=== PATIENT | male | born 1995 | race African-American/Black ===

== ENCOUNTER 2020-01-07 04:10 | Inpatient (IN) | payer MEDICAID, SELFPAY ==
[2020-01-07 04:20] VITALS: BP 108/83; PULSE 85; RESP 16; TEMP 36.6; O2SAT 94; BMI 28.8
--- NOTE | 2020-01-07 05:04 | PC.NURSE ---
Skin assessment revealed no wounds or injuries.
[2020-01-07 05:31] VITALS: BP 108/83; PULSE 84; RESP 16; TEMP 36.6; O2SAT 95
[2020-01-07] MEDS: hyDROXYzine 25 mg Capsule 50 MG PO (08:08)
[2020-01-07] MEDS: haloperidol 5 mg Tablet PO (08:08)
[2020-01-07] MEDS: nicotine 21 mg Patch 1 PATCH TRANSDERMA (08:09)
--- NOTE | 2020-01-07 08:12 | PC.NURSE ---
PRN HALDOL & VISTARIL HALDOL 5 MG GIVEN PO PER PT C/O HALLUCINATIONS. VISTARIL 50 MG GIVEN PO PER PT C/O ANXIETY. PT PACING IN ROOM, APPEARS EXTREMELY ANXIOUS. HOLDING HIS HEAD AND CRYING AT TIMES. TOOK MEDS WILLINGLY. WILL CONT TO MONITOR FOR DESIRED MED EFFECTIVENESS.
[2020-01-07] MEDS: OLANZapine 5 mg ODT PO (09:33)
--- NOTE | 2020-01-07 09:33 | PC.NURSE ---
PRN ZYPREXA ZYDIS 5 MG GIVEN PO PER PT C/O AGITATION & PSYCHOSIS PT PACING IN ROOM, YELLING OUT AT TIMES, CURSING, TALKING TO HIMSELF . TOOK MED WILLINGLY. WILL CONT TO MONITOR
[2020-01-07] MEDS: acetaminophen 325 mg Tablet 650 MG PO (11:11)
[2020-01-07] MEDS: LORazepam 2 mg Tablet PO (11:28)
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
[2020-01-07 20:04] VITALS: BP 103/67; PULSE 69; RESP 16; TEMP 36.8; O2SAT 94
[2020-01-08 06:00] VITALS: BP 112/65; PULSE 78; RESP 16; TEMP 36.6; O2SAT 99
[2020-01-08] MEDS: ondansetron 4 MG Tablet PO (09:19)
--- NOTE | 2020-01-08 09:20 | PC.NURSE ---
PRN ZOFRAN 4 MG GIVEN PO PER PT C/O STATED NAUSEA/UPSET STOMACH
[2020-01-08] MEDS: OLANZapine 5 mg ODT PO (09:53)
--- NOTE | 2020-01-08 09:54 | PC.NURSE ---
PRN ZYPREXA ZYDIS 5 MG GIVEN PO PER PT C/O AGITATION/PSYCHOSIS. PT IN ROOM YELLING OUT, COVERING HIMSELF WITH A SHEET. STAFF WENT TO CHECK ON PT AND PT REMOVED SHEET BUT HELD HIS HANDS TO THE SIDE OF HIS HEAD AND YELLING OUT GET OUT OF MY HEAD! PT OFFERED PRN MED & PT TOOK WILLINGLY. WILL CONT TO MONITOR
[2020-01-08] MEDS: LORazepam 2 mg Tablet PO (10:28)
--- NOTE | 2020-01-08 13:21 | NPU.GN ---
Viraj was not present at Group this afternoon.
--- NOTE | 2020-01-08 13:44 | P.PN_ITS ---
Subjective NPU Subjective: Interval history: Lukasz presents today continuing to really struggle with impulse control. However after getting medication today he was able to have a somewhat logical and productive conversation with basic given take format. He reports that he is on Invega but he does not recall when he last got the shot. Continue to be a limited use understanding of his challenges are. However conversation with his mother suggest that he really has been struggling recently and in fact she has applied for guardianship and some paperwork arrived today and it is possibly his acknowledgment of a court date. We will follow this information and identify when he last had his medication. Mental Status Exam MSE Comments: This is a well-nourished well-developed white male with hospital scrubs on with limited grooming and eye contact. No abnormal movements except for psychomotor agitation. More cooperative with examination in mild to moderate distress. Speech was increased rate and volume, but better after medication. Mood not described, affect was animated and irritable. Thought process linear. Thought content: Patient did not respond to questions about lethality but did not demonstrate agitation towards himself or others, there were no delusions reported and no specific delusions noted, he did not respond to questions about auditory hallucinations but was clearly attending to internal stimuli and having full-blown conversations with himself. Attention and concentration were limited, but improving and memory was unreliable, but improving but none were formally tested. He is alert and oriented times person and place. Insight and judgment are impaired but improving, impulse control is impaired. Vitals/I&O/Wt Last Vital Signs Temp 97.9 F 01/08/20 06:00 Pulse 78 01/08/20 06:00 Resp 16 01/08/20 06:00 BP 112/65 01/08/20 06:00 Pulse Ox 99 01/08/20 06:00 Weight last 48 hrs Weight 41.277 kg Weight 91 kg A&P Additional A&P Information (1) Psychosis: (2) Substance abuse: (3) Anxiety: This is a 25-year-old white male with reported active addiction who is healthy presents as a very poor historian with limited input to our understanding of his presentation who presents resistant to medication trial. 1. Continue current medication. Will explore and offer medications to assist in the resolution of his symptoms. Will identify when his last injection was and whether he would benefit from augmentation with Invega. 2. Continue every 15 minute checks for safety. 3. Encourage individual, group and milieu therapy. 4. Recommend sober living treatment at the highest level care to which he is willing to commit upon discharge. 5. We will attempt to get collateral information to assist in his care. Involuntary Hold Information 96 Hour Hold: 96 Hour Involuntary Admission: No Attestations NPU Medical Necessity Statement*: Inpatient hospitalization is medically necessary and the clinically appropriate intervention at this time. We will initiate/monitor medications and make changes as indicated. Likely length of stay 3-5 days. Coding Level of Care Code Acute Cooler Service Supervisor for Sanjana Saucedo
[2020-01-08 14:00] VITALS: BP 105/69; PULSE 105; RESP 18; TEMP 36.7; O2SAT 98
[2020-01-08] MEDS: hyDROXYzine 25 mg Capsule 50 MG PO (21:36)
[2020-01-08] MEDS: trazodone 50 mg Tablet PO (21:37)
[2020-01-08 22:00] VITALS: BP 106/66; PULSE 82; RESP 17; TEMP 36.4; O2SAT 100
[2020-01-09 05:58] VITALS: BP 113/79; PULSE 85; RESP 15; TEMP 36.6; O2SAT 98
[2020-01-09] MEDS: hyDROXYzine 25 mg Capsule 50 MG PO ×2 (10:11→22:45)
[2020-01-09] MEDS: haloperidol 5 mg Tablet PO ×2 (10:11→15:26)
--- NOTE | 2020-01-09 11:48 | PC.NURSE ---
med clarification This nurse called [facility] in [place], [place]. Contact info for Dr. Guerrier office that he follows outpatient and last invega injection was given on 12/06/19.
[2020-01-09] MEDS: ziprasidone 20 mg/mL SDV (12:15)
[2020-01-09] MEDS: LORazepam 2 mg/mL INJ 1 mL IM (12:16)
--- NOTE | 2020-01-09 12:21 | PM.NPN ---
Subjective NPU Subjective: Interval history: Lukasz presents today continuing to struggle with anxiety and psychosis. He continues to get as needed medications, but we are able to determine that he received his last Invega injection slightly over a month ago and so we discussed giving him his injection now and he understood and agreed to proceed as is documented in this note. Mental Status Exam MSE Comments: This is a well-nourished well-developed white male with hospital scrubs on with limited grooming and eye contact. No abnormal movements except for psychomotor agitation. More cooperative with examination in mild to moderate distress. Speech was increased rate and volume, but better after medication. Mood not described, affect was animated and irritable. Thought process linear. Thought content: Patient did not respond to questions about lethality but did not demonstrate agitation towards himself or others, there were no delusions reported and no specific delusions noted, he did not respond to questions about auditory hallucinations but was clearly attending to internal stimuli and having full-blown conversations with himself. Attention and concentration were limited, but improving and memory was unreliable, but improving but none were formally tested. He is alert and oriented times person and place. Insight and judgment are impaired but improving, impulse control is impaired. Vitals/I&O/Wt Last Vital Signs Temp 98.9 F 01/09/20 22:00 Pulse 86 01/09/20 22:00 Resp 15 01/09/20 22:00 BP 109/70 01/09/20 22:00 Pulse Ox 96 01/09/20 22:00 A&P Additional A&P Information (1) Psychosis: (2) Substance abuse: (3) Anxiety: This is a 25-year-old white male with reported active addiction who is healthy presents as a very poor historian with limited input to our understanding of his presentation who presents resistant to medication trial. 1. Continue current medication. Administer his Invega injection 234 mg IM every 30 days. 2. Continue every 15 minute checks for safety. 3. Encourage individual, group and milieu therapy. 4. Recommend sober living treatment at the highest level care to which he is willing to commit upon discharge. 5. We will attempt to get collateral information to assist in his care. Involuntary Hold Information 96 Hour Hold: 96 Hour Involuntary Admission: No Attestations NPU Medical Necessity Statement*: Inpatient hospitalization is medically necessary and the clinically appropriate intervention at this time. We will initiate/monitor medications and make changes as indicated. Likely length of stay 3-5 days. Coding Level of Care Code Acute Superintendent Construction for Sanjana Saucedo
--- NOTE | 2020-01-09 12:30 | PC.NURSE ---
Geodon and Ativan Patient continues to yell at no one, pace back and forth in his room, rambling and talking to voices. Patient jumping off and on his bed, messing with curtains. Patient then kicked his heel into the wall, leaving a hole in the wall. Patient punching windows. Patient said get me out of here . Security called. Unable to redirect patient. 20mg Geodon and 2mg Ativan given IM per physician order.
[2020-01-09 13:59] VITALS: BP 116/83; PULSE 104; RESP 18; TEMP 37.1; O2SAT 99
[2020-01-09] MEDS: paliperidone palmitate 234 mg Syringe IM (14:27)
--- NOTE | 2020-01-09 14:30 | PC.NURSE ---
INVEGA SUSTENNA 234 MG GIVEN IM PER PHYSICIAN ORDER. IM INJECTION GIVEN IN RIGHT BUTTOCK. PT TOLERATED INJECTION WELL LOT KDBOEOO EXP 05/2021
[2020-01-09 22:00] VITALS: BP 109/70; PULSE 86; RESP 15; TEMP 37.2; O2SAT 96
[2020-01-09] MEDS: OLANZapine 5 mg ODT PO (22:46)
[2020-01-09] MEDS: trazodone 50 mg Tablet PO (22:46)
[2020-01-09] MEDS: ondansetron 4 MG Tablet PO (22:46)
--- NOTE | 2020-01-09 23:52 | PC.NURSE ---
PATIENT IS BECOMING MORE AGITATED AND YELLING. HE SEEMS TO BE PHYSICALLY FIGHTING WITH SOMETHING UNSEEN. HE KEEPS SCREAMING OH MY GOD, LEAVE ME ALONE, SHUT UP. HE SWATS AT THE AIR AND IS HIDING UNDER HIS BLANKETS. HE IS ROCKING, FEET FLAILING, AND KICKING AT WHATEVER HE IS SEEING. WHEN ASKED IF HE IS HEARING VOICES.. HE RESPONDED YES, THEY WONT SHUT UP. CONSULTED MED NURSE TIERRA. PATIENT IS REQUESTING MEDICATION IN THE FORM OF A SHOT TO MAKE THE VOICES AND HALLUCINATIONS STOP.
[2020-01-10] MEDS: diphenhydrAMINE 50 mg/mL SDV 1mL IM (00:08)
[2020-01-10] MEDS: LORazepam 2 mg/mL INJ 1 mL IM (00:09)
[2020-01-10] MEDS: haloperidol inj 5 mg/mL INJ 1 mL IM (00:10)
--- NOTE | 2020-01-10 00:11 | PC.NURSE ---
Patient is having severe AH and VH. Fighting demons and yelling , punching at the air, pounding his bed. B-52 given.
--- NOTE | 2020-01-10 03:16 | PC.NURSE ---
Pt was seeing demons and hearing voices screaming. Became frightened and hid under covers. He kept screaming at the things he was seeing. Rob gave patient Benedryl 50mg IM, Ativan 2mg Im, Haldol 5mg IM. Patient has slept since he received these injections. He has been very delusional this evening
[2020-01-10 06:00] VITALS: BP 107/55; PULSE 90; RESP 17; TEMP 36.7; O2SAT 100
--- NOTE | 2020-01-10 10:05 | P.PN_ITS ---
Subjective NPU Subjective: Interval history: Viraj presented today in much the same pattern that he had been in with moments of clarity followed by periods of agitation. Once again he required as needed medication to help manage his impulses. We discussed the risk benefits and alternatives of intended Geodon and he appeared to understand and agree proceed as is documented in this note. Mental Status Exam MSE Comments: This is a well-nourished well-developed white male with hospital scrubs on with limited grooming and eye contact. No abnormal movements except for psychomotor agitation. More cooperative with examination in mild to moderate distress. Speech was increased rate and volume, but better after medication. Mood described as okay, affect was irritable. Thought process linear. Thought content: Patient not suicidal or homicidal ideation but continued to have self injurious aggression, there were no delusions reported and no specific delusions noted, he did not respond to questions about auditory hallucinations but was clearly attending to internal stimuli and having full- blown conversations with himself. Attention and concentration were limited, but improving and memory was unreliable, but improving but none were formally tested. He is alert and oriented times person and place. Insight and judgment are impaired but improving, impulse control is impaired. Vitals/I&O/Wt Last Vital Signs Temp 97.3 F L 01/10/20 14:00 Pulse 85 01/10/20 14:00 Resp 17 01/10/20 21:21 BP 110/75 01/10/20 14:00 Pulse Ox 99 01/10/20 14:00 A&P Additional A&P Information (1) Psychosis: (2) Substance abuse: (3) Anxiety: This is a 25-year-old white male with reported active addiction who is healthy presents as a very poor historian with limited input to our understanding of his presentation who presents resistant to medication trial. 1. Continue current medication. Except: Initiate Geodon 20 mg p.o. twice daily with meals 2. Continue every 15 minute checks for safety. 3. Encourage individual, group and milieu therapy. 4. Recommend sober living treatment at the highest level care to which he is willing to commit upon discharge. 5. We will attempt to get collateral information to assist in his care. Involuntary Hold Information 96 Hour Hold: 96 Hour Involuntary Admission: No Attestations NPU Medical Necessity Statement*: Inpatient hospitalization is medically necessary and the clinically appropriate intervention at this time. We will initiate/monitor medications and make changes as indicated. Likely length of stay 3-5 days. Coding Level of Care Code Acute Pathology Assistant for Sanjana Saucedo
[2020-01-10] MEDS: OLANZapine 5 mg ODT PO (13:10)
--- NOTE | 2020-01-10 13:10 | PC.NURSE ---
PRN Zyprexa Zydis Patient at nurses station pacing between room and desk, increased anxiety noted and and patient verbalized increased anxiety. Zyprexa Zydis 5mg PO given at this time. Will monitor effectiveness of this medication.
[2020-01-10 14:00] VITALS: BP 110/75; PULSE 85; RESP 20; TEMP 36.3; O2SAT 99
[2020-01-10] MEDS: haloperidol 5 mg Tablet PO (14:15)
--- NOTE | 2020-01-10 14:15 | PC.NURSE ---
Zyprexa Follow up/Haldol PRN Patient continues to pace between room and nurses station. Occasional yelling at no one directly. Haldol 5mg PO given at this time. Will monitor effectiveness of this medication.
[2020-01-10] MEDS: ziprasidone 20 mg/mL SDV IM (15:15)
--- NOTE | 2020-01-10 15:15 | PC.NURSE ---
Geodon 20mg IM/Agitation Patient at phone talking to mother, has increased agitation and yelling, threw phone to the ground, and went into room and pushed bed away from wall. This nurse called security and asked them to come down to NPU. Patient went back towards nurses station and attempted another phone call, he then started slamming against the door. Code 10 was then called, patient was agreeable to receiving an injection to help with agitation and anxiety. Geodon 20mg IM given at this time. Will monitor effectiveness of this medication.
--- NOTE | 2020-01-10 15:47 | PC.NURSE ---
CODE 10 Patient Behavior Just before 1510 patient was verbally aggressive with his mother on the phone. He slammed the phone down and stated he was leaving. He began ramming into the locked door. Security was present and tried to verbally de-escalated the patient. A code 10 was called as he continued to be agitated stating his mom was going to lock him up forever. We followed him into his room and he began punching the window. Several staff, security and editor house organ present. Patient began to calm and agreed to an IM injection for agitation.
--- NOTE | 2020-01-10 15:49 | PC.NURSE ---
Randell PRN Follow up Patient is resting in bed with eyes closed. Respirations even and non labored.
[2020-01-10 21:21] VITALS: RESP 17
[2020-01-11 06:00] VITALS: BP 99/64; PULSE 71; RESP 14; TEMP 37.1; O2SAT 98
[2020-01-11] MEDS: ziprasidone hcl 20 mg Capsule PO (06:38)
[2020-01-11] MEDS: ziprasidone 20 mg/mL SDV IM (09:07)
--- NOTE | 2020-01-11 09:11 | PC.NURSE ---
Patient behavior Patient was yelling out that he wanted the demons in his head to go away. He requested medication for the hallucinations that were making him agitated. Given 20 mg Geodon IM.
[2020-01-11] MEDS: haloperidol inj 5 mg/mL INJ 1 mL IM (11:09)
[2020-01-11] MEDS: LORazepam 2 mg/mL INJ 1 mL IM (11:10)
[2020-01-11] MEDS: diphenhydrAMINE 50 mg/mL SDV 1mL IM (11:10)
--- NOTE | 2020-01-11 11:10 | PC.NURSE ---
Patient behavior Patient was on ph9one with his mom and started yelling. He slammed the phone down and went to his room. Staff, warehouse pricing and inventory clerk and security present and attempted to verbally de escalate. Sheet was removed from his hands. Patient agreed to medication for his aggression. Given 50 benadryl IM, 2 ativan IM, 5 haldol IM.
--- NOTE | 2020-01-11 11:42 | P.PN_ITS ---
Subjective NPU Subjective: Interval history: Viraj continues to persist and able to communicate but continues to have moments of significant psychomotor dysregulation. He is taking his medication and endorsing improvement but he still has those moments. We discussed the risks, benefits and alternatives of increasing the Geodon and he understood and agreed to proceed as is documented in this note. Mental Status Exam MSE Comments: This is a well-nourished well-developed white male with hospital scrubs on with limited grooming and eye contact. No abnormal movements except for psychomotor agitation. More cooperative with examination in mild distress. Speech was more normal rate and volume, but better after medication. Mood described as okay, affect was less irritable. Thought process linear. Thought content: Patient not suicidal or homicidal ideation but continued to have self injurious aggression, there were no delusions reported and no specific delusions noted, he did not respond to questions about auditory hallucinations but was clearly attending to internal stimuli and having full-blown conversations with himself, but less often. Attention and concentration were limited, but improving and memory was unreliable, but improving but none were formally tested. He is alert and oriented times person and place. Insight and judgment are impaired but improving, impulse control is impaired. Vitals/I&O/Wt Last Vital Signs Temp 98.7 F 01/11/20 14:00 Pulse 112 H 01/11/20 14:00 Resp 14 01/11/20 21:43 BP 124/84 01/11/20 14:00 Pulse Ox 98 01/11/20 14:00 A&P Additional A&P Information (1) Psychosis: (2) Substance abuse: (3) Anxiety: This is a 25-year-old white male with reported active addiction who is healthy presents as a very poor historian with limited input to our understanding of his presentation who presents resistant to medication trial. 1. Continue current medication. Except: Increase Geodon to 40 mg p.o. twice daily with meals 2. Continue every 15 minute checks for safety. 3. Encourage individual, group and milieu therapy. 4. Recommend sober living treatment at the highest level care to which he is willing to commit upon discharge. 5. We will attempt to get collateral information to assist in his care. Involuntary Hold Information 96 Hour Hold: 96 Hour Involuntary Admission: No Attestations NPU Medical Necessity Statement*: Inpatient hospitalization is medically necessary and the clinically appropriate intervention at this time. We will initiate/monitor medications and make changes as indicated. Likely length of stay 3-5 days. Coding Level of Care Code Acute Conveyor Installer for Sanjana Saucedo
[2020-01-11 14:00] VITALS: BP 124/84; PULSE 112; RESP 20; TEMP 37.1; O2SAT 98
[2020-01-11] MEDS: LORazepam 2 mg Tablet PO (14:48)
--- NOTE | 2020-01-11 14:49 | PC.NURSE ---
PRN ATIVAN Patient stated the demons were back in his head and he was getting anxious. Given 2mg Ativan po.
[2020-01-11] MEDS: ziprasidone hcl 40 mg Capsule PO (17:00)
[2020-01-11] MEDS: trazodone 50 mg Tablet PO (21:27)
[2020-01-11] MEDS: hyDROXYzine 25 mg Capsule 50 MG PO (21:27)
[2020-01-11 21:43] VITALS: RESP 14
[2020-01-12 06:00] VITALS: BP 136/81; PULSE 76; RESP 17; TEMP 36.2; O2SAT 96
[2020-01-12] MEDS: ziprasidone hcl 40 mg Capsule PO ×2 (06:12→17:07)
[2020-01-12] MEDS: LORazepam 2 mg Tablet PO ×2 (09:24→14:49)
--- NOTE | 2020-01-12 09:25 | PC.NURSE ---
[place] ATIVAN Patient stated his demons were back in his head. he had been yelling out for them to go away. Given 2 mg Ativan PO.
[2020-01-12] MEDS: OLANZapine 5 mg ODT PO (13:10)
--- NOTE | 2020-01-12 13:11 | PC.NURSE ---
PRN ZYPREXA ZYDIS Patient stated he is hearing voices and the demons requested medication. Given zyprexa zydis 5 mg po.
[2020-01-12] MEDS: nicotine 21 mg Patch 1 PATCH TRANSDERMA (13:27)
--- NOTE | 2020-01-12 13:45 | PM.NPN ---
Subjective NPU Subjective: Interval history: Viraj presents today reporting a desire to be discharged. He reports that the medication is helpful and he is taking it. We discussed the importance of him having more manageable behavior before discharge. He reports that yesterday he was not angry or planning to do anything bad when he had issue with a blanket. We discussed working with the treatment team tomorrow to get a sense of what his options are to begin looking towards discharge. Mental Status Exam MSE Comments: This is a well-nourished well-developed white male with hospital scrubs on with limited grooming and eye contact. No abnormal movements except for mild psychomotor retardation. More cooperative with examination in no acute distress. Speech was more normal rate and volume. Mood described as I feel better, affect was more calm. Thought process linear. Thought content: Patient did not express suicidal or homicidal ideation, there were no delusions reported and no specific delusions noted, he denied auditory or visual hallucinations. Attention and concentration were improving, and memory was appearing more reliable, but none were formally tested. He is alert and oriented times 3. Insight and judgment are improving, impulse control is impaired, but improving. Vitals/I&O/Wt Last Vital Signs Temp 98.3 F 01/12/20 22:00 Pulse 86 01/12/20 22:00 Resp 15 01/12/20 22:00 BP 106/68 01/12/20 22:00 Pulse Ox 97 01/12/20 22:00 Weight last 48 hrs Weight 72.575 kg A&P Additional A&P Information (1) Psychosis: (2) Substance abuse: (3) Anxiety: This is a 25-year-old white male with reported active addiction who is healthy presents as a very poor historian with limited input to our understanding of his presentation who presents resistant to medication trial. 1. Continue current medication. 2. Continue every 15 minute checks for safety. 3. Encourage individual, group and milieu therapy. 4. Recommend sober living treatment at the highest level care to which he is willing to commit upon discharge. 5. We will attempt to get collateral information to assist in his care. Involuntary Hold Information 96 Hour Hold: 96 Hour Involuntary Admission: No Attestations NPU Medical Necessity Statement*: Inpatient hospitalization is medically necessary and the clinically appropriate intervention at this time. We will initiate/monitor medications and make changes as indicated. Likely length of stay 2-4 days. Coding Level of Care Code Acute Lead Systems Analyst for Sanjana Saucedo
[2020-01-12 14:00] VITALS: BP 134/86; PULSE 108; RESP 16; TEMP 36.8; O2SAT 98
[2020-01-12] MEDS: acetaminophen 325 mg Tablet 650 MG PO (14:45)
[2020-01-12] MEDS: haloperidol 5 mg Tablet PO (14:49)
--- NOTE | 2020-01-12 14:54 | PC.NURSE ---
PRN ATIVAN and HALDOL Patient continues to have hallucinations to the point he is yelling and getting agitated. Given 2 mg Ativan po and 5 mg Haldol po.
[2020-01-12] MEDS: ziprasidone 20 mg/mL SDV IM (15:57)
[2020-01-12] MEDS: hyDROXYzine 25 mg Capsule 50 MG PO (21:20)
[2020-01-12] MEDS: trazodone 50 mg Tablet PO (21:21)
[2020-01-12 22:00] VITALS: BP 106/68; PULSE 86; RESP 15; TEMP 36.8; O2SAT 97
[2020-01-13 06:00] VITALS: BP 100/65; PULSE 91; RESP 16; TEMP 36.6; O2SAT 97
[2020-01-13] MEDS: ziprasidone hcl 40 mg Capsule PO ×2 (06:05→17:22)
[2020-01-13] MEDS: hyDROXYzine 25 mg Capsule 50 MG PO ×2 (12:25→21:28)
[2020-01-13] MEDS: haloperidol 5 mg Tablet PO (12:26)
--- NOTE | 2020-01-13 12:33 | PC.NURSE ---
PRN Vistaril and Haldol Patient states the demons are back in his head and is requesting something for anxiety. Patient is yelling out for them to go away in his room. Tossing and turning in his bed and speaking to people who are not there. 5mg PO Haldal and 50mg PO Vistaril given.
[2020-01-13] MEDS: ziprasidone 20 mg/mL SDV IM (13:07)
[2020-01-13] MEDS: LORazepam 2 mg/mL INJ 1 mL IM (13:33)
--- NOTE | 2020-01-13 13:33 | PC.NURSE ---
PRN ATIVAN AND GEODON PRN 20mg IM Geodon given as patient stated the voices just wouldn't go away. Patient seemed to calm down after, but then patient tried to use phone and started yelling. He slammed the phone down, punched a hole in the wall in the hallway and went to his room. Staff members went to see what was going on and attempted to verbally de escalate. Security called and arrived to patient's room. Patient continuing to yell and hit rojas in his room. Dr. Rae arrived and attempted to de escalate as well. Patient then walked angrily to hallway and verbally aggressive towards staff. Patient agreed to medication for his aggression and anxiety. 2mg IM Ativan given. Patient now in room, sitting on bed. Patient educated that this behavior is inappropriate and harmful. Work order placed for hole in wall.
[2020-01-13 14:18] VITALS: BP 140/92; PULSE 89; RESP 18; TEMP 36.2; O2SAT 96
--- NOTE | 2020-01-13 15:17 | PM.NPN ---
Subjective NPU Subjective: Interval history: Viraj presents today making some strides but being very agitated. At one point he punched a hole in the wall of the wall adjacent to his door just outside of his room. He then requested to leave and clearly has limited insight and decision-making capacity as his arguments for discharge were infantile at best. He is clearly not aware of the proceedings going on and is now starting to report a desire to leave even though he has no place to go and will be fully and capable of functioning independently outside of the hospital. Significant concerns exist for the speed and intensity of his escalation still. Mental Status Exam MSE Comments: This is a well-nourished well-developed white male with hospital scrubs on with limited grooming and eye contact. No abnormal movements except for mild psychomotor retardation with occasional moments of extreme psychomotor agitation. More cooperative with examination in moderate distress. Speech was more normal rate and volume. Mood described as I want to leave, affect was irritable. Thought process linear. Thought content: Patient did not express suicidal or homicidal ideation but displayed outwardly directed aggression, there were no delusions reported and no specific delusions noted, he denied auditory or visual hallucinations. Attention and concentration were improving, and memory was appearing more reliable, but none were formally tested. He is alert and oriented times 3. Insight and judgment are improving, impulse control is impaired, but improving. Vitals/I&O/Wt Last Vital Signs Temp 98.2 F 01/13/20 20:32 Pulse 82 01/13/20 20:32 Resp 16 01/13/20 20:32 BP 119/76 01/13/20 20:32 Pulse Ox 97 01/13/20 20:32 Weight last 48 hrs Weight 72.575 kg A&P Additional A&P Information (1) Psychosis: (2) Substance abuse: (3) Anxiety: This is a 25-year-old white male with reported active addiction who is healthy presents as a very poor historian with limited input to our understanding of his presentation who presents resistant to medication trial. 1. Continue current medication. Except increase Geodon to 60 mg p.o. twice daily with meals. 2. Continue every 15 minute checks for safety. 3. Encourage individual, group and milieu therapy. 4. Recommend sober living treatment at the highest level care to which he is willing to commit upon discharge. 5. We will attempt to get collateral information to assist in his care. Involuntary Hold Information 96 Hour Hold: 96 Hour Involuntary Admission: No Attestations NPU Medical Necessity Statement*: Inpatient hospitalization is medically necessary and the clinically appropriate intervention at this time. We will initiate/monitor medications and make changes as indicated. Likely length of stay 2-4 days. We may need to put him on a 96-hour hold. Coding Level of Care Code Acute Supervisor Ble[employer] for Sanjana Saucedo
[2020-01-13 20:32] VITALS: BP 119/76; PULSE 82; RESP 16; TEMP 36.8; O2SAT 97
[2020-01-13] MEDS: trazodone 50 mg Tablet PO (21:28)
[2020-01-14 06:00] VITALS: BP 110/74; PULSE 78; RESP 15; TEMP 36.4; O2SAT 98
[2020-01-14] MEDS: ziprasidone hcl 40 mg Capsule PO ×2 (06:12→16:51)
[2020-01-14] MEDS: haloperidol 5 mg Tablet PO (08:27)
[2020-01-14] MEDS: LORazepam 2 mg Tablet PO (08:27)
[2020-01-14] MEDS: LORazepam 2 mg/mL INJ 1 mL IM (09:05)
[2020-01-14] MEDS: ziprasidone 20 mg/mL SDV IM (09:05)
--- NOTE | 2020-01-14 09:08 | PC.NURSE ---
PRN MEDICATIONS FOR AGGRESSION AND ANXIETY PRN 20mg IM Geodon and 2mg IM Ativan given at 0905 as patient became aggressive after having conversation on phone with his mother. Patient began yelling at person on phone. Staff attempted to ask patient to calm down, please get off phone. Patient refused. Patient then handed the phone to KRISSY Lemus and told her to tell his mother to fuck off . Patient then yelling and stormed into dayroom. Staff members went to see what was going on and attempted to verbally de escalate. Other patients and PSA asked to leave dayroom and go back to their room for safety. Patient began trying to moss picker chairs and topple them over. Patient stated he was going to throw the chair through the window. Security called and arrived to dayroom. Patient continuing to yell and hit the windows in dayroom. Patient then walked angrily through hallway. Patient then went to his room. Patient agreed to medication for his aggression and anxiety. Patient now in room, sitting on bed. Medication given. Patient educated that this behavior is inappropriate and harmful and could be harmful to other patients as well. Physician notified.
--- NOTE | 2020-01-14 11:34 | PM.NPN ---
Subjective NPU Subjective: Interval history: Viraj continues to struggle with his self-control. Continues to focus on being discharged. Today received the paperwork that a temporary guardian has been assigned and so his requests for discharge have gotten complicated. We alluded to the fact that we got some paperwork that we were unclear about verify what needed to be done. He called his mother but it is unclear whether she actually told him that she had gained the injunction but she was somewhat frustrated because she was made the guardian and she had hoped that have been a public branch office administrator. We were able to explain to him however we were looking for an appropriate placement. He once again required as needed medication. Mental Status Exam MSE Comments: This is a well-nourished well-developed white male with hospital scrubs on with limited grooming and eye contact. No abnormal movements except for mild psychomotor retardation with occasional moments of extreme psychomotor agitation. More cooperative with examination in moderate distress. Speech was more spontaneous and more normal rate and volume. Mood described as I want to leave, affect was irritable. Thought process linear. Thought content: Patient did not express suicidal or homicidal ideation but displayed outwardly directed aggression, there were no delusions reported and no specific delusions noted, he denied auditory or visual hallucinations. Attention and concentration were improving, and memory was appearing more reliable, but none were formally tested. He is alert and oriented times 3. Insight and judgment are improving, impulse control is impaired, but improving. Vitals/I&O/Wt Last Vital Signs Temp 97.6 F 01/14/20 14:00 Pulse 101 H 01/14/20 14:00 Resp 16 01/14/20 20:13 BP 115/79 01/14/20 14:00 Pulse Ox 98 01/14/20 14:00 A&P Additional A&P Information (1) Psychosis: (2) Substance abuse: (3) Anxiety: This is a 25-year-old white male with reported active addiction who is healthy presents as a very poor historian with limited input to our understanding of his presentation who presents resistant to medication trial. 1. Continue current medication. 2. Continue every 15 minute checks for safety. 3. Encourage individual, group and milieu therapy. 4. Recommend sober living treatment at the highest level care to which he is willing to commit upon discharge. 5. Patient now has a guardian. Which is his mother. Involuntary Hold Information 96 Hour Hold: 96 Hour Involuntary Admission: No Attestations NPU Medical Necessity Statement*: Inpatient hospitalization is medically necessary and the clinically appropriate intervention at this time. We will initiate/monitor medications and make changes as indicated. Coding Level of Care Code Acute Ice Cream Machine Operator for Sanjana Saucedo
[2020-01-14] MEDS: OLANZapine 5 mg ODT PO (12:37)
[2020-01-14] MEDS: hyDROXYzine 25 mg Capsule 50 MG PO (12:37)
[2020-01-14 14:00] VITALS: BP 115/79; PULSE 101; RESP 18; TEMP 36.4; O2SAT 98
[2020-01-14] MEDS: nicotine 21 mg Patch 1 PATCH TRANSDERMA (15:05)
[2020-01-14 20:13] VITALS: RESP 16
--- NOTE | 2020-01-14 22:41 | NUR.SHIFT ---
Pt's vitals are stable, resting in his room.
[2020-01-15] MEDS: trazodone 50 mg Tablet PO ×2 (00:32→21:52)
[2020-01-15] MEDS: hyDROXYzine 25 mg Capsule 50 MG PO ×4 (00:32→21:52)
--- NOTE | 2020-01-15 02:53 | PC.NURSE ---
No Incident-pt has slept well, no outbursts, no nightmares, and reports a decrease in VH/AH. Asked for a snack at the nurses desk and returned to bed.
[2020-01-15] MEDS: ziprasidone hcl 40 mg Capsule PO ×2 (05:55→16:13)
[2020-01-15 06:00] VITALS: BP 114/73; PULSE 105; RESP 17; TEMP 36.3; O2SAT 100
--- NOTE | 2020-01-15 06:09 | PC.SOCIAL ---
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 He was clear enough to ask this morning. Hope this information helps.
[2020-01-15] MEDS: OLANZapine 5 mg ODT PO (09:40)
[2020-01-15] MEDS: LORazepam 2 mg Tablet PO (12:27)
--- NOTE | 2020-01-15 12:28 | PC.NURSE ---
PRN ATIVAN Patient came to nurse's station requesting something for anxiety, states he feels more anxious and it will only get worse. Ativan 2mg PO given.
[2020-01-15] MEDS: ondansetron 4 MG Tablet PO (12:49)
[2020-01-15 13:44] VITALS: BP 108/70; PULSE 96; RESP 19; TEMP 36.3
--- NOTE | 2020-01-15 14:21 | P.PN_ITS ---
Subjective NPU Subjective: Interval history: Viraj presents reporting that he is trying to figure out what he has to do to be discharged. He had an episode again this morning where he was frustrated and needed when necessary medication to calm down. But he understands the treatment team is working for placement options both level II and otherwise and at least at this point he is trying to be cooperative. Mental Status Exam MSE Comments: This is a well-nourished well-developed white male with hospital scrubs on with limited grooming and eye contact. No abnormal movements except for mild psychomotor retardation with occasional moments of extreme psychomotor agitation. More cooperative with examination in moderate distress. Speech was more spontaneous and more normal rate and volume. Mood described not good, affect was irritable. Thought process linear. Thought content: Patient did not express suicidal or homicidal ideation but displayed outwardly directed aggression, there were no delusions reported and no specific delusions noted, he denied auditory or visual hallucinations. Attention and concentration were improving, and memory was appearing more reliable, but none were formally tested. He is alert and oriented times 3. Insight and judgment are improving, impulse control is impaired, but improving. Vitals/I&O/Wt Last Vital Signs Temp 97.4 F L 01/15/20 13:44 Pulse 96 01/15/20 13:44 Resp 19 H 01/15/20 13:44 BP 108/70 01/15/20 13:44 Pulse Ox 100 01/15/20 06:00 A&P Additional A&P Information (1) Psychosis: (2) Substance abuse: (3) Anxiety: This is a 25-year-old white male with reported active addiction who is healthy presents as a very poor historian with limited input to our understanding of his presentation who presents resistant to medication trial. 1. Continue current medication. 2. Continue every 15 minute checks for safety. 3. Encourage individual, group and milieu therapy. 4. Recommend sober living treatment at the highest level care to which he is willing to commit upon discharge. 5. Patient now has a guardian. Which is his mother. Involuntary Hold Information 96 Hour Hold: 96 Hour Involuntary Admission: No Attestations NPU Medical Necessity Statement*: Inpatient hospitalization is medically necessary and the clinically appropriate intervention at this time. We will initiate/monitor medications and make changes as indicated. Likely stay 4-6 days. Coding Level of Care Code Acute Grants Analyst for Sanjana Saucedo
--- NOTE | 2020-01-15 16:13 | PC.NURSE ---
PRN Vistaril Vistaril 50mg PO PRN given at this time, patient reports increased anxiety and is pacing in hallway.
[2020-01-15] MEDS: buPROPion SR (12 HR) 150 mg Tablet PO (17:02)
--- NOTE | 2020-01-15 21:54 | PC.NURSE ---
Addendum entered by Delaney Figueroa RN 01/16/20 03:53: Pt slept peacefully and very sound this evening. Original Note: visteril/trazodone 50mg PO visteril for anxiety 50mg PO trazodone for sleep will monitor pt
[2020-01-15 22:00] VITALS: BP 122/64; PULSE 68; RESP 17; TEMP 37; O2SAT 98
[2020-01-16 06:00] VITALS: BP 109/73; PULSE 93; RESP 17; TEMP 36.6; O2SAT 97
[2020-01-16] MEDS: ziprasidone hcl 40 mg Capsule PO ×2 (06:12→16:36)
[2020-01-16] MEDS: hyDROXYzine 25 mg Capsule 50 MG PO (07:09)
[2020-01-16] MEDS: OLANZapine 5 mg ODT PO (07:09)
--- NOTE | 2020-01-16 07:10 | PC.NURSE ---
visteril/zyprexa zydis 5mg PO Zyprexa Zydis and 50mg PO Visteril given for increased anxiety/agitation. Will continue to monitor the patient for escalation or resolution. He reports to hear voices and is talking to himself angrily. Went to the dayroom and kicked a chair.
--- NOTE | 2020-01-16 07:14 | PC.NURSE ---
Pt just came back down the parker giggling to himself, went into his room, and kicked the bed. He has received medication but is beginning to have AH/VH again.
[2020-01-16] MEDS: buPROPion XL (24 HR) 150 mg Tablet PO (08:07)
[2020-01-16] MEDS: acetaminophen 325 mg Tablet 650 MG PO (10:19)
--- NOTE | 2020-01-16 10:22 | P.PN_ITS ---
Subjective NPU Subjective: Interval history: Viraj continues to have improvement in his ability to have functional communication but his impulsivity, especially in the morning challenges. We discussed the risks benefits and alternatives of adding a dose of Ativan in the morning scheduled to see if that doesn't decrease this morning volatility and he understood and agreed to proceed as documented in his note. Mental Status Exam MSE Comments: This is a well-nourished well-developed white male with hospital scrubs on with limited grooming and eye contact. No abnormal movements except for mild psychomotor retardation with occasional moments of extreme psychomotor agitation. More cooperative with examination in moderate distress. Speech was more spontaneous and more normal rate and volume. Mood described I want to get out today, affect was less irritable. Thought process linear. Thought content: Patient did not express suicidal or homicidal ideation but displayed outwardly directed aggression, there were no delusions reported and no specific delusions noted, he denied auditory or visual hallucinations. Attention and concentration were improving, and memory was appearing more reliable, but none were formally tested. He is alert and oriented times 3. Insight and judgment are improving, impulse control is impaired, but improving. Vitals/I&O/Wt Last Vital Signs Temp 97.3 L F 01/16/20 06:00 Pulse 105 H 01/16/20 06:00 Resp 17 01/16/20 06:00 BP 114/73 01/16/20 06:00 Pulse Ox 100 01/16/20 06:00 A&P Additional A&P Information (1) Psychosis: (2) Substance abuse: (3) Anxiety: This is a 25-year-old white male with reported active addiction who is healthy presents as a very poor historian with limited input to our understanding of his presentation who presents resistant to medication trial. 1. Continue current medication. Continue with a milligram of Ativan in the morning. 2. Continue every 15 minute checks for safety. 3. Encourage individual, group and milieu therapy. 4. Recommend sober living treatment at the highest level care to which he is willing to commit upon discharge. 5. Patient now has a guardian. Which is his mother. Involuntary Hold Information 96 Hour Hold: 96 Hour Involuntary Admission: No Attestations NPU Medical Necessity Statement*: Inpatient hospitalization is medically necessary and the clinically appropriate intervention at this time. We will initiate/monitor medications and make changes as indicated. Likely stay 4-6 days. Coding Level of Care Code Acute Municipal Engineer for Chg Sheryl
[2020-01-16] MEDS: LORazepam 1 mg Tablet PO (10:57)
[2020-01-16] MEDS: LORazepam 2 mg Tablet PO (10:57)
--- NOTE | 2020-01-16 10:59 | PC.NURSE ---
PRN ATIVAN 2 MG GIVEN PO PER PT C/O SEVERE ANXIETY. PT YELLING AND CURSING LOUDLY FROM BATHROOM IN ROOM, WHEN STAFF CONFRONTS PT AND ASKS IF HE IS OK, HE YELLS NO I'M NOT! I'M PISSED OFF! PRN MED OFFERED AND PT TOOK WILLINGLY. WILL CONT TO MONITOR
[2020-01-16 13:46] VITALS: BP 108/65; PULSE 81; RESP 18; TEMP 37; O2SAT 98
[2020-01-16] MEDS: nicotine 21 mg Patch 1 PATCH TRANSDERMA (13:46)
[2020-01-16] MEDS: LORazepam 2 mg/mL INJ 1 mL IM (17:11)
[2020-01-16] MEDS: haloperidol inj 5 mg/mL INJ 1 mL IM (17:11)
--- NOTE | 2020-01-16 17:12 | PC.NURSE ---
PRN HALDOL/ATIVAN/CODE 10 haldol 5 mg given im with ativan 2 mg im in right deltoid per pt behavior of increased agitation/aggression. pt punching wall in room, Code 10 called. security on unit. pt took injection without incident but stated he was really agitated pt has been pacing in his room, rapid speech noted. will cont to monitor for med effectiveness.
[2020-01-16 20:09] VITALS: RESP 17
[2020-01-17] MEDS: OLANZapine 5 mg ODT PO ×2 (04:49→13:20)
[2020-01-17] MEDS: hyDROXYzine 25 mg Capsule 50 MG PO ×2 (04:49→13:20)
[2020-01-17] MEDS: trazodone 50 mg Tablet PO (04:50)
[2020-01-17 06:00] VITALS: BP 121/85; PULSE 87; RESP 17; TEMP 37; O2SAT 99
[2020-01-17] MEDS: ziprasidone hcl 40 mg Capsule PO ×2 (06:24→16:04)
[2020-01-17] MEDS: LORazepam 1 mg Tablet PO (08:47)
[2020-01-17] MEDS: buPROPion XL (24 HR) 150 mg Tablet PO (08:47)
[2020-01-17] MEDS: ondansetron 4 MG Tablet PO (09:45)
--- NOTE | 2020-01-17 09:46 | PC.NURSE ---
Addendum entered by Nasrin Leyva LPN 01/17/20 12:02: prn med effective no further c/o nausea Original Note: PRN ZOFRAN 4 MG GIVEN PO PER PT C/O STATED NAUSEA. WILL CONT TO MONITOR
--- NOTE | 2020-01-17 13:21 | PC.NURSE ---
PRN VISTARIL & ZYPREXA ZYDIS VISTARIL 50 MG GIVEN PO PER PT C/O STATED ANXIETY & ZYPREXA ZYDIS 5 MG GIVEN PO PER PT C/O AGITATION. PT VERY MED SEEKING. WILL CONT TO MONITOR
[2020-01-17 14:00] VITALS: BP 109/76; PULSE 111; RESP 19; TEMP 36.3; O2SAT 96
[2020-01-17] MEDS: acetaminophen 325 mg Tablet 650 MG PO (15:50)
--- NOTE | 2020-01-17 16:41 | P.PN_ITS ---
Subjective NPU Subjective: Interval history: Viraj presented today endorsing doing better. Being a little more able to utilize his verbal communication to identify anxiety and moments of dysregulation. He did not have an outburst this morning as we scheduled Ativan in the morning. We will consider the possibility of having it on multiple occasions during the day. Otherwise we discussed continuing to seek a place for him to be discharged to with an understanding that his appeal to those if that these will be greatly amplified with his self-control. Mental Status Exam MSE Comments: This is a well-nourished well-developed white male with hospital scrubs on with limited grooming and eye contact. No abnormal movements except for mild psychomotor retardation with occasional moments of extreme psychomotor agitation. More cooperative with examination in moderate distress. Speech was more spontaneous and more normal rate and volume. Mood described I want to get out today, affect was less irritable. Thought process linear. Thought content: Patient did not express suicidal or homicidal ideation but displayed outwardly directed aggression, there were no delusions reported and no specific delusions noted, he denied auditory or visual hallucinations. Attention and concentration were improving, and memory was appearing more reliable, but none were formally tested. He is alert and oriented times 3. Insight and judgment are improving, impulse control is impaired, but improving. Vitals/I&O/Wt Last Vital Signs Temp 97.4 F L 01/17/20 14:00 Pulse 111 H 01/17/20 14:00 Resp 19 H 01/17/20 14:00 BP 109/76 01/17/20 14:00 Pulse Ox 96 01/17/20 14:00 A&P Additional A&P Information (1) Psychosis: (2) Substance abuse: (3) Anxiety: This is a 25-year-old white male with reported active addiction who is healthy presents as a very poor historian with limited input to our understanding of his presentation who presents resistant to medication trial. 1. Continue current medication. We will consider adding another dose of Ativan sometime later in the day. 2. Continue every 15 minute checks for safety. 3. Encourage individual, group and milieu therapy. 4. Recommend sober living treatment at the highest level care to which he is willing to commit upon discharge. 5. Patient now has a guardian. Which is his mother. Involuntary Hold Information 96 Hour Hold: 96 Hour Involuntary Admission: No Attestations NPU Medical Necessity Statement*: Inpatient hospitalization is medically necessary and the clinically appropriate intervention at this time. We will initiate/monitor medications and make changes as indicated. Likely stay 4-6 days. Coding Level of Care Code Acute Ground Mixer for Sanjana Saucedo
[2020-01-17 20:28] VITALS: BP 122/83; PULSE 87; RESP 13; TEMP 36.7; O2SAT 98
--- NOTE | 2020-01-17 21:31 | PC.NURSE ---
Assessment Limited as the patient was sleeping and refused to wake. He mumbled answers. Stated not SI/HI for experiencing AH/VH at this time. will continue to monitor the patient.
[2020-01-18 06:00] VITALS: BP 114/76; PULSE 76; RESP 14; TEMP 36.6; O2SAT 97
[2020-01-18] MEDS: ziprasidone hcl 40 mg Capsule PO (06:15)
[2020-01-18] MEDS: LORazepam 1 mg Tablet PO ×2 (06:55→16:47)
[2020-01-18] MEDS: OLANZapine 5 mg ODT PO ×2 (06:55→11:51)
[2020-01-18] MEDS: buPROPion XL (24 HR) 150 mg Tablet PO (08:12)
--- NOTE | 2020-01-18 10:42 | P.PN_ITS ---
Subjective NPU Subjective: Interval history: Viraj presents today continuing to have moments where he struggles with his impulse control. He was doing better in the mornings but then struggled in the evenings. He had no real comment about the reasons why and was not very cooperative during the interview. Mental Status Exam MSE Comments: This is a well-nourished well-developed white male with hospital scrubs on with limited grooming and eye contact. No abnormal movements except for significant psychomotor retardation. Uncooperative with examination in no acute distress. Speech was mostly absent. Mood not described, affect subdued. Thought process linear. Thought content: Patient did not express suicidal or homicidal ideation but but had been aggressive earlier, there were no delusions reported and no specific delusions noted, he did not report auditory or visual hallucinations and did not appear to be attending to internal stimuli. Attention and concentration were limited today, and memory was not tested, but none were formally tested. He is alert and oriented times 3. Insight and judgment are limited, impulse control is impaired, but improving. Vitals/I&O/Wt Last Vital Signs Temp 97.9 F 01/18/20 06:00 Pulse 76 01/18/20 06:00 Resp 14 01/18/20 06:00 BP 114/76 01/18/20 06:00 Pulse Ox 97 01/18/20 06:00 A&P Additional A&P Information (1) Psychosis: (2) Substance abuse: (3) Anxiety: This is a 25-year-old white male with reported active addiction who is healthy presents as a very poor historian with limited input to our understanding of his presentation who presents resistant to medication trial. 1. Continue current medication. We will consider adding another dose of Ativan sometime later in the day, but will increase Geodon to 80 mg p.o. twice daily with meals. 2. Continue every 15 minute checks for safety. 3. Encourage individual, group and milieu therapy. 4. Recommend sober living treatment at the highest level care to which he is willing to commit upon discharge. 5. Patient now has a guardian. Which is his mother. Involuntary Hold Information 96 Hour Hold: 96 Hour Involuntary Admission: No Attestations NPU Medical Necessity Statement*: Inpatient hospitalization is medically necessary and the clinically appropriate intervention at this time. We will initiate/monitor medications and make changes as indicated. Likely stay 4-6 days. Coding Level of Care Code Acute Volunteer Services Coordinator for Sanjana Saucedo
[2020-01-18] MEDS: hyDROXYzine 25 mg Capsule 50 MG PO (11:51)
--- NOTE | 2020-01-18 11:52 | PC.NURSE ---
Addendum entered by Nasrin Leyva LPN 01/18/20 13:32: prn med effective no further c/o anxiety or agitation Original Note: PRN VISTARIL & ZYPREXA ZYDIS VISTARIL 50 MG GIVEN PO WITH ZYPREXA ZYDIS 5 MG PO PER PT C/O STATED ANXIETY/AGITATION. PT YELLING OUT IN ROOM, CAME TO NURSES STATION SAYING I NEED A SHOT I'M GETTING REALLY AGITATED. PT OFFERED ORAL MEDICATION & AGREEABLE TO TAKE. PT WAS PREVIOUSLY EATING IN DAY ROOM WITH NO OUTBURSTS. PT FREQUENTLY ASKING FOR ANY AND ALL PRN MEDICATIONS HE CAN HAVE.
[2020-01-18 14:00] VITALS: BP 109/75; PULSE 96; RESP 20; TEMP 36.6; O2SAT 98
[2020-01-18] MEDS: nicotine 21 mg Patch 1 PATCH TRANSDERMA (14:01)
[2020-01-18] MEDS: haloperidol 5 mg Tablet PO (14:40)
--- NOTE | 2020-01-18 14:40 | PC.NURSE ---
Addendum entered by Nasrin Leyva LPN 01/18/20 17:42: prn med ineffective, seen next nurses note Original Note: PRN HALDOL 5 MG GIVEN PO PER PT C/O AGITATION/PSYCHOSIS. PT PACING IN ROOM YELLING AT HIMSELF. NO ONE ELSE IN ROOM BUT PT IS TALKING RAPID PRESSURED SPEECH. ASKED FOR A SHOT WHEN ORAL MEDICATION OFFERED. PT DID TAKE ORAL MED. WILL CONT TO MONITOR FOR DESIRED MED EFFECTIVENESS.
[2020-01-18] MEDS: ziprasidone 20 mg/mL SDV IM (16:07)
[2020-01-18] MEDS: acetaminophen 325 mg Tablet 650 MG PO (16:07)
--- NOTE | 2020-01-18 16:08 | PC.NURSE ---
Addendum entered by Nasrin Leyva LPN 01/18/20 17:43: prn med effective pt lying in bed resting quietly, resp even et unlabored Original Note: PRN PADMINIDON/CODE 10 PT DISRUPTIVE ON UNIT, YELLING AND FLIPPING FURNITURE ON MALE SIDE DAY ROOM. STAFF CALLED CODE 10 AT THIS TIME. OTHER PATIENTS ASKED TO LEAVE DAY AREA AND GO TO THEIR ROOMS. THIS NURSE WENT TO PULL PRN MED. UPON ENTERING DAY ROOM PT IS SITTING IN FRONT OF A CHAIR IN FRONT OF THE TV. THIS NURSE ASKED PT TO RETURN TO HIS ROOM FOR INJECTION. PT COMPLIED WITH THIS REQUEST. INJECTION OF 20 MG GEODON GIVEN IN LEFT DELTOID. WILL CONT TO MONITOR FOR DESIRED MED EFFECTIVENESS.
[2020-01-18] MEDS: ziprasidone hcl 40 mg Capsule 80 MG PO (16:47)
[2020-01-18 21:59] VITALS: RESP 16
[2020-01-19 06:00] VITALS: BP 111/65; PULSE 78; RESP 16; TEMP 36.4; O2SAT 95
[2020-01-19] MEDS: ziprasidone hcl 40 mg Capsule 80 MG PO ×2 (06:00→17:13)
[2020-01-19] MEDS: OLANZapine 5 mg ODT PO (06:42)
--- NOTE | 2020-01-19 06:44 | PC.NURSE ---
PRN ZYPREXA PT IN HIS ROOM LAUGHING INAPPROPRIATELY AND TALKING LOUDLY TO HIMSELF. ADMINISTERED ZYPREXA ZYDIS 5 MG SUBLINGUAL. WILL MONITOR FOR MEDICATION EFFECTIVENESS.
[2020-01-19] MEDS: buPROPion XL (24 HR) 150 mg Tablet PO (09:06)
[2020-01-19] MEDS: LORazepam 1 mg Tablet PO ×2 (09:06→17:13)
[2020-01-19] MEDS: hyDROXYzine 25 mg Capsule 50 MG PO ×2 (09:06→20:46)
--- NOTE | 2020-01-19 09:06 | PC.NURSE ---
PRN Vistaril/anxiety Vistaril 50mg given at this time for increased anxiety. Patient reports feeling increased anxiety and was pacing in room.
--- NOTE | 2020-01-19 10:14 | PC.NURSE ---
Vistaril Follow up Patient is resting in bed, sleeping at this time.
[2020-01-19] MEDS: acetaminophen 325 mg Tablet 650 MG PO (11:48)
[2020-01-19] MEDS: ondansetron 4 MG Tablet PO (12:44)
[2020-01-19] MEDS: ziprasidone 20 mg/mL SDV IM (13:21)
--- NOTE | 2020-01-19 13:21 | PC.NURSE ---
PRN Geodon 20mg IM Patient in room taking a shower and yelling, unsure what patient said. Patient out of shower and dressed and went down to the dayroom and is noted to be pacing back and forth, and yelling. Nurse approached patient and asked if he would be willing to go back to his room for medication to help with agitation, he agrees. Patient sat on bed while this nurse administered Geodon 20mg IM. Will monitor the effectiveness of this medication.
[2020-01-19 13:45] VITALS: BP 110/72; PULSE 68; RESP 18; TEMP 37; O2SAT 98
--- NOTE | 2020-01-19 14:53 | PC.NURSE ---
Randell follow up Patient is cooperative and pleasant. He is talking on the phone with family at this time and is in a good mood, does not appear to be getting agitated with family as he has the past several days.
[2020-01-19] MEDS: haloperidol inj 5 mg/mL INJ 1 mL IM (15:51)
[2020-01-19] MEDS: diphenhydrAMINE 50 mg/mL SDV 1mL IM (15:52)
[2020-01-19] MEDS: LORazepam 2 mg/mL INJ 1 mL IM (15:52)
--- NOTE | 2020-01-19 15:52 | PC.NURSE ---
PRN B52 PRN Ativan 2mg IM, Benadryl 50mg, and Haldol 5mg IM given at this time. Patient was in dayroom and begins screaming, a loud bang is heard and patient came nurses station and states im sorry for throwing that but i sat it back up. I need some medication. when asked what upset him, He states that the voices in his head are really bothering him. He is pacing in his room. SL[place] Hall encourages him to come play cards with her down in the dayroom. Patient agrees at this time. Patient came back to patient room for medication. Cooperative. Will monitor for effectiveness of these medications.
[2020-01-19] MEDS: benzocaine 20% 7 gm 1 APPLIC MUCOUS MEM (16:40)
[2020-01-19] MEDS: nicotine 21 mg Patch 1 PATCH TRANSDERMA (17:11)
--- NOTE | 2020-01-19 17:28 | PM.NPN ---
Subjective NPU Subjective: Interval history: Lukasz presents today reporting that he is a little tired. He was wondering about the prospects of discharge soon. I discussed with him that this is my last night on coverage and Dr. Manriquez will be making the decisions tomorrow. That being said we discussed the fact that his behavior is at the heart of the reason why he still here. He reports that he is doing okay with the medication. He reports that he is tolerating the increase in the medication, except for maybe a little somnolence today. Mental Status Exam MSE Comments: This is a well-nourished well-developed white male with hospital scrubs on with limited grooming and eye contact. No abnormal movements except for significant psychomotor retardation. More cooperative with examination in no acute distress. Speech was more spontaneous, but decreased rate and volume. Mood described as a little better, affect subdued. Thought process linear. Thought content: Patient did not express suicidal or homicidal ideation, there were no delusions reported and no specific delusions noted, he did not report auditory or visual hallucinations and did not appear to be attending to internal stimuli. Attention and concentration were improved, and memory was more reliable, but none were formally tested. He is alert and oriented times 3. Insight and judgment are limited, but improving impulse control is impaired, but improving. Vitals/I&O/Wt Last Vital Signs Temp 98.6 F 01/19/20 13:45 Pulse 68 01/19/20 13:45 Resp 18 01/19/20 13:45 BP 110/72 01/19/20 13:45 Pulse Ox 98 01/19/20 13:45 Weight last 48 hrs Weight 87.26 kg A&P Additional A&P Information (1) Psychosis: (2) Substance abuse: (3) Anxiety: This is a 25-year-old white male with reported active addiction who is healthy presents as a very poor historian with limited input to our understanding of his presentation who presents resistant to medication trial. 1. Continue current medication. 2. Continue every 15 minute checks for safety. 3. Encourage individual, group and milieu therapy. 4. Recommend sober living treatment at the highest level care to which he is willing to commit upon discharge. Involuntary Hold Information 96 Hour Hold: 96 Hour Involuntary Admission: No Attestations NPU Medical Necessity Statement*: Inpatient hospitalization is medically necessary and the clinically appropriate intervention at this time. We will initiate/monitor medications and make changes as indicated. Likely stay 4-6 days. Coding Level of Care Code Acute Auger Machine Offbearer for Sanjana Saucedo
[2020-01-19] MEDS: trazodone 50 mg Tablet PO (20:46)
[2020-01-19 21:35] VITALS: BP 125/88; PULSE 100; RESP 18; TEMP 36.5; O2SAT 93
[2020-01-20] MEDS: ziprasidone hcl 40 mg Capsule 80 MG PO (05:23)
[2020-01-20 06:00] VITALS: BP 137/86; PULSE 114; RESP 18; TEMP 36.4; O2SAT 99
[2020-01-20] MEDS: buPROPion XL (24 HR) 150 mg Tablet PO (08:07)
[2020-01-20] MEDS: LORazepam 1 mg Tablet PO (08:07)
[2020-01-20] MEDS: hyDROXYzine 25 mg Capsule 50 MG PO ×2 (12:33→20:48)
--- NOTE | 2020-01-20 12:35 | PC.NURSE ---
PRN Vistaril/Anxiety Patient began laughing to himself in hallway, attempted to make a phone call but was unable to make contact. Came to nurses station reporting increased anxiety. Vistaril 50mg PO given at this time. Will monitor coello effectiveness of this medication.
[2020-01-20] MEDS: benzocaine 20% 7 gm 1 APPLIC MUCOUS MEM ×2 (12:43→16:19)
[2020-01-20] MEDS: LORazepam 2 mg/mL INJ 1 mL IM (13:14)
--- NOTE | 2020-01-20 13:14 | PC.NURSE ---
2mg Ativan IM/Anxiety Patient increased anxiety, pacing hallway, slightly agitated. Requesting meds for anxiety. Ativan 2mg IM given at this time by Tab Solis RN. Will monitor effectiveness of this medication.
[2020-01-20 13:30] VITALS: BP 126/78; PULSE 97; RESP 18; TEMP 36.5; O2SAT 96
--- NOTE | 2020-01-20 13:47 | PM.NPN ---
Subjective NPU Subjective: Interval history: Patient spontaneously reports that the barriers to him leaving focused primarily on his explosive outbursts which tend to be provoked by minor irritants. He says this has been a longstanding problem. He does report a history of psychosis with auditory hallucinations but feels that those are under fairly decent control. We discussed his medication history. He gives a long history of medications that he has tried in the past with some success. They include Seroquel, Invega, lithium, Depakote, clonazepam, propranolol, and some other medication for ADHD . It is noted that the patient is being interviewed in the middle of the afternoon about the time of that his lorazepam blood levels would likely be decreasing. He was engaged because he was becoming irritable and angry for no apparent reason. Mental Status Exam MSE Comments: Mental Status Exam: The patient is alert and interpersonally engaged male appearing approximately his stated age. He has soft objects in his ears ostensibly to help reduce the severity of his auditory hallucinations. Otherwise eye contact is good. Appearance: hygiene is fair; no gross neurological deficits., gait is unremarkable; AIMS=0 Speech: Speech is of normal rate and rhythm and easily understood. Thought processes: Thought processes are concrete. Judgment is not adequate for safety only in the sense that when he becomes angry, he has difficulty rationally making choices.. Associations: intact Psychotic processes: There is no indication of guarding or paranoia. There is no attention to the internal stimuli. Auditory and visual hallucinations are denied. Judgment: Insight is fair. Problem solving skills are adequate for safety. Orientation: The patient is oriented to person, place time and situation. Memory: no deficits noted in immediate, intermediate, or remote spheres. Attention: The patient is alert and interpersonally engaged. Language: Verbalizations are coherent. Fund of knowledge: Fund of knowledge is adequate. Affect/Mood: Affect is consistent with a mildly depressed mood. pt denies suicidal ideation Affective range is expansive Psychosis: perception unimpaired except through cognitive distortion; reality testing is challenged but intact. Cognition: Patient Appearance: Appears Older than Age Ability to Follow Directions: Good Patient Orientation (long list): Person and Name Comprehension Ability: No Impairment Hallucination Type: Auditory Delusion Description: Paranoid Ideation Thought Process: Indecisive Affect: Affect Description: Appropriate and Calm Behavior: Patient Behavior: Appropriate and Cooperative Speech Pattern: Appropriate and Clear Vitals/I&O/Wt Last Vital Signs Temp 97.7 F 01/20/20 13:30 Pulse 97 01/20/20 13:30 Resp 18 01/20/20 13:30 BP 126/78 01/20/20 13:30 Pulse Ox 96 01/20/20 13:30 Weight last 48 hrs Weight 87.26 kg A&P Assessment and plan (1) Psychosis: Status: Acute (2) Substance abuse: Status: Acute (3) Anxiety: Status: Acute Additional A&P Information (1) Psychosis: (2) Substance abuse: (3) Anxiety: This is a 25-year-old white male with reported active addiction who is healthy presents as a very poor historian with limited input to our understanding of his presentation who presents resistant to medication trial. Hospital day #14: Patient agrees to replacement of Ativan with clonazepam 1 mg twice daily to take advantage of its longer half-life and reduce likelihood of variation in medication blood levels as a potential risk factor for increased sensitivity to his irritability. We will provide a test dose of propranolol 20 mg daily which is a medication that may be helpful for reactive aggression. Patient has taken both of these medications in the past. We also discussed the possible utility of a more brain stabilizing agent such as Depakote or lithium. Records will be reviewed for further consideration. 1. Continue current medication. 2. Continue every 15 minute checks for safety. 3. Encourage individual, group and milieu therapy. 4. Recommend sober living treatment at the highest level care to which he is willing to commit upon discharge. Involuntary Hold Information 96 Hour Hold: 96 Hour Involuntary Admission: No Attestations NPU Medical Necessity Statement*: Patient will remain in the hospital another 2-4 nights for assessment of medication efficacy and tolerability. Coding Level of Care Code Acute Head Inspector And Center Marker for Sanjana Saucedo Diagnoses Psychosis F29 Substance abuse F19.10 Anxiety F41.9
--- NOTE | 2020-01-20 13:55 | PC.NURSE ---
Ativan Follow up Patient increased anxiety, pacing hallways still and yelling. Went into patient room and he did hit the wall but not hard enough to punch a hole through it. Security called and at door, patient agreeable to more medication.
[2020-01-20] MEDS: diphenhydrAMINE 50 mg/mL SDV 1mL IM (13:59)
[2020-01-20] MEDS: ziprasidone 20 mg/mL SDV IM (13:59)
--- NOTE | 2020-01-20 13:59 | PC.NURSE ---
PRN Geodon and Benadryl IM Geodon 20mg and Benadryl 50mg IM pRN given at this time for increased agitation, yelling and hitting wall. Patient cooperative. Will monitor for effectiveness of these medications.
[2020-01-20] MEDS: propranolol 20 mg Tablet PO (14:10)
[2020-01-20] MEDS: nicotine 21 mg Patch 1 PATCH TRANSDERMA (14:28)
[2020-01-20] MEDS: acetaminophen 325 mg Tablet 650 MG PO (16:29)
[2020-01-20] MEDS: CLONazepam 1 mg Tablet PO (16:41)
[2020-01-20] MEDS: ziprasidone hcl 20 mg Capsule PO (16:41)
[2020-01-20] MEDS: ziprasidone hcl 60 mg Capsule PO (16:41)
[2020-01-20] MEDS: ondansetron 4 MG Tablet PO (17:58)
[2020-01-20] MEDS: trazodone 50 mg Tablet PO (20:48)
[2020-01-20 21:36] VITALS: RESP 18
[2020-01-21] MEDS: ziprasidone hcl 20 mg Capsule PO ×2 (05:27→16:11)
[2020-01-21] MEDS: ziprasidone hcl 60 mg Capsule PO ×2 (05:27→16:11)
[2020-01-21 06:00] VITALS: BP 105/70; PULSE 82; RESP 17; TEMP 36.8; O2SAT 99
[2020-01-21] MEDS: CLONazepam 1 mg Tablet PO ×2 (08:01→16:10)
[2020-01-21] MEDS: buPROPion XL (24 HR) 150 mg Tablet PO (08:01)
[2020-01-21] MEDS: hyDROXYzine 25 mg Capsule 50 MG PO ×2 (10:56→20:28)
[2020-01-21] MEDS: OLANZapine 5 mg ODT PO ×2 (10:56→15:23)
--- NOTE | 2020-01-21 10:56 | PC.NURSE ---
Addendum entered by Nasrin Leyva LPN 01/21/20 11:54: prn meds seem to be effective at this time, pt in day room watching tv calmly Original Note: PRN ZYPREXA ZYDIS & VISTARIL VISTARIL 50 MG GIVEN PO PER PT C/O ANXIETY & ZYPREXA ZYDIS 5 MG GIVEN PO PER PT C/O STATED ANXIETY/AGITATION. PT ASKING FOR ANXIETY MEDICATIONS ROAD CONSULTANT SPOKE TO PT ABOUT OTHER COPING SKILLS TO DECREASE ANXIETY. AFTER MED ADMINISTRATION PT LYING DOWN IN BED COVED UP WITH BLANKET, LIGHTS DIMMED TO DECREASE STIMULI. WILL CONT TO MONITOR.
--- NOTE | 2020-01-21 11:20 | P.PN_ITS ---
Subjective NPU Subjective: Interval history: Patient states that he continues to struggle with his irritability but says that he has done better over the past 24 hours. He had some difficulty sleeping last night but when he awoke, he can get back to sleep pretty easily. Mental Status Exam MSE Comments: Mental Status Exam: The patient is alert and interpersonally engaged male appearing approximately his stated age. He has soft objects in his ears ostensibly to help reduce the severity of his auditory hallucinations. Otherwise eye contact is good. Appearance: hygiene is fair; no gross neurological deficits., gait is unremarkable; AIMS=0 Speech: Speech is of normal rate and rhythm and easily understood. Thought processes: Thought processes are concrete. Judgment is not adequate for safety only in the sense that when he becomes angry, he has difficulty rationally making choices.. Associations: intact Psychotic processes: There is no indication of guarding or paranoia. There is no attention to the internal stimuli. Auditory and visual hallucinations are denied. Judgment: Insight is fair. Problem solving skills are adequate for safety. Orientation: The patient is oriented to person, place time and situation. Memory: no deficits noted in immediate, intermediate, or remote spheres. Attention: The patient is alert and interpersonally engaged. Language: Verbalizations are coherent. Fund of knowledge: Fund of knowledge is adequate. Affect/Mood: Affect is consistent with a mildly depressed mood. pt denies suicidal ideation Affective range is expansive Psychosis: perception unimpaired except through cognitive distortion; reality testing is challenged but intact. Cognition: Patient Appearance: Appears Older than Age Ability to Follow Directions: Good Patient Orientation (long list): Person and Name Comprehension Ability: No Impairment Hallucination Type: None Delusion Description: Not Present Thought Process: Disorganized Affect: Affect Description: Calm Behavior: Patient Behavior: Cooperative Speech Pattern: Clear Vitals/I&O/Wt Last Vital Signs Temp 98.2 F 01/21/20 06:00 Pulse 82 01/21/20 06:00 Resp 17 01/21/20 06:00 BP 105/70 01/21/20 06:00 Pulse Ox 99 01/21/20 06:00 A&P Assessment and plan (1) Psychosis: Status: Acute (2) Substance abuse: Status: Acute (3) Anxiety: Status: Acute Additional A&P Information (1) Psychosis: (2) Substance abuse: (3) Anxiety: This is a 25-year-old white male with reported active addiction who is healthy presents as a very poor historian with limited input to our understanding of his presentation who presents resistant to medication trial. Hospital day #14: Patient agrees to replacement of Ativan with clonazepam 1 mg twice daily to take advantage of its longer half-life and reduce likelihood of variation in medication blood levels as a potential risk factor for increased sensitivity to his irritability. We will provide a test dose of propranolol 20 mg daily which is a medication that may be helpful for reactive aggression. Patient has taken both of these medications in the past. We also discussed the possible utility of a more brain stabilizing agent such as Depakote or lithium. Records will be reviewed for further consideration. Hospital day #15: Patient has gone 24 hours without emotional outburst. He seems to be tolerating medication well at this time. His blood pressure continues to be low at 105/70 and so we will focus on the use of benzodiazepines to help with his explosive outbursts as opposed to beta-blockers or similar cardiovascular side effect medications. 1. Continue current medication. 2. Continue every 15 minute checks for safety. 3. Encourage individual, group and milieu therapy. 4. Recommend sober living treatment at the highest level care to which he is willing to commit upon discharge. Involuntary Hold Information 96 Hour Hold: 96 Hour Involuntary Admission: No Attestations NPU Medical Necessity Statement*: Patient will remain in the hospital another 2-4 nights for assessment of medication efficacy and tolerability. Coding Level of Care Code Acute P 3 Armament/Ordnance Ima Technician for Sanjana Saucedo Diagnoses Psychosis F29 Substance abuse F19.10 Anxiety F41.9
[2020-01-21] MEDS: benzocaine 20% 7 gm 1 APPLIC MUCOUS MEM (13:53)
[2020-01-21] MEDS: acetaminophen 325 mg Tablet 650 MG PO (13:53)
[2020-01-21 14:00] VITALS: BP 129/89; PULSE 88; RESP 20; TEMP 36.6; O2SAT 98
[2020-01-21] MEDS: nicotine 2 mg Gum BUCCAL (14:49)
--- NOTE | 2020-01-21 15:23 | PC.NURSE ---
Addendum entered by Nasrin Leyva LPN 01/21/20 19:08: prn med effective no further c/o agitation. pt asleep in bed in room Original Note: PRN ZYPREXA ZYDIS 5 MG GIVEN PO PER PT C/O STATED AGITATION. PT FREQUENTLY ASKING FOR ANY AND ALL PRN MEDS HE CAN HAVE. WILL CONT TO MONITOR
[2020-01-21] MEDS: trazodone 50 mg Tablet PO (20:28)
[2020-01-21 22:00] VITALS: BP 119/74; PULSE 83; RESP 15; TEMP 36.9; O2SAT 98
[2020-01-22 06:00] VITALS: BP 103/67; PULSE 81; RESP 16; TEMP 36.9; O2SAT 99
[2020-01-22] MEDS: ziprasidone hcl 60 mg Capsule PO ×2 (06:02→17:21)
[2020-01-22] MEDS: ziprasidone hcl 20 mg Capsule PO ×2 (06:02→17:21)
[2020-01-22] MEDS: hyDROXYzine 25 mg Capsule 50 MG PO ×2 (09:45→18:19)
[2020-01-22] MEDS: OLANZapine 5 mg ODT PO (09:45)
[2020-01-22] MEDS: CLONazepam 1 mg Tablet PO ×2 (09:45→17:21)
[2020-01-22] MEDS: buPROPion XL (24 HR) 150 mg Tablet PO (09:45)
--- NOTE | 2020-01-22 09:48 | PC.NURSE ---
PRN VISTARIL & ZYPREXA ZYDIS VISTARIL 50 MG PO PER PT FOR ANXIETY & ZYPREXA ZYDIS 5 MG PO PER PT FOR STATED ANXIETY/AGITATION. PT REQUESTING MEDICATIONS FOR ANXIETY. FINANCIAL EXAMINER SPOKE TO PT ABOUT OTHER COPING SKILLS TO DECREASE ANXIETY. PATIENT INSTRUCTED TO LAY DOWN AND TRY TO CALM HIMSELF WHILE USING COPING MECHANISMS. WILL CONTINUE TO MONITOR.
[2020-01-22] MEDS: nicotine 21 mg Patch 1 PATCH TRANSDERMA (12:14)
--- NOTE | 2020-01-22 12:36 | P.PN_ITS ---
Subjective NPU Subjective: Interval history: I did know they gave me as needed pills. I am doing really well. I want to leave. Mental Status Exam MSE Comments: Mental Status Exam: The patient is alert and interpersonally engaged male appearing approximately his stated age. He no longer has soft objects in his ears . Otherwise eye contact is good. Appearance: hygiene is fair; no gross neurological deficits., gait is unremarkable; AIMS=0 Speech: Speech is of normal rate and rhythm and easily understood. Thought processes: Thought processes are concrete. Judgment is not adequate for safety only in the sense that when he becomes angry, he has difficulty rationally making choices.. Associations: intact Psychotic processes: There is no indication of guarding or paranoia. There is no attention to the internal stimuli. Auditory and visual hallucinations are denied. Judgment: Insight is fair. Problem solving skills are adequate for safety. Orientation: The patient is oriented to person, place time and situation. Memory: no deficits noted in immediate, intermediate, or remote spheres. Attention: The patient is alert and interpersonally engaged. Language: Verbalizations are coherent. Fund of knowledge: Fund of knowledge is adequate. Affect/Mood: Affect is consistent with a mildly depressed mood. pt denies suicidal ideation Affective range is within normal limits Psychosis: perception unimpaired except through cognitive distortion; reality testing is intact. Cognition: Patient Appearance: Appropriate Ability to Follow Directions: Good Patient Orientation (long list): Person and Name Comprehension Ability: No Impairment Hallucination Type: None Delusion Description: Paranoid Ideation Thought Process: Appropriate Affect: Affect Description: Appropriate Behavior: Patient Behavior: Appropriate Speech Pattern: Appropriate and Clear Vitals/I&O/Wt Last Vital Signs Temp 98.5 F 01/22/20 06:00 Pulse 81 01/22/20 06:00 Resp 16 01/22/20 06:00 BP 103/67 01/22/20 06:00 Pulse Ox 99 01/22/20 06:00 A&P Assessment and plan (1) Psychosis: Status: Acute (2) Substance abuse: Status: Acute (3) Anxiety: Status: Acute Additional A&P Information (1) Psychosis: (2) Substance abuse: (3) Anxiety: This is a 25-year-old white male with reported active addiction who is healthy presents as a very poor historian with limited input to our understanding of his presentation who presents resistant to medication trial. Hospital day #14: Patient agrees to replacement of Ativan with clonazepam 1 mg twice daily to take advantage of its longer half-life and reduce likelihood of variation in medication blood levels as a potential risk factor for increased sensitivity to his irritability. We will provide a test dose of propranolol 20 mg daily which is a medication that may be helpful for reactive aggression. Patient has taken both of these medications in the past. We also discussed the possible utility of a more brain stabilizing agent such as Depakote or lithium. Records will be reviewed for further consideration. Hospital day #15: Patient has gone 24 hours without emotional outburst. He seems to be tolerating medication well at this time. His blood pressure continues to be low at 105/70 and so we will focus on the use of benzodiazepines to help with his explosive outbursts as opposed to beta-blockers or similar cardiovascular side effect medications. Hospital day #16: Patient has now gone 48 hours without an emotional outburst. He was given as needed Zyprexa and Vistaril this morning. It is unclear why that was provided as the patient claims that he was not emotionally distraught and was working hard to keep his behavior and emotions under control. Access to as needed medications will be reduced. 1. Continue current medication. 2. Continue every 15 minute checks for safety. 3. Encourage individual, group and milieu therapy. 4. Recommend sober living treatment at the highest level care to which he is willing to commit upon discharge. Involuntary Hold Information 96 Hour Hold: 96 Hour Involuntary Admission: No Attestations NPU Medical Necessity Statement*: Patient will remain in the hospital another 1-2 nights until placement can be acquired. 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
[2020-01-22 14:00] VITALS: BP 116/81; PULSE 97; RESP 18; TEMP 36.9; O2SAT 98
[2020-01-22] MEDS: benzocaine 20% 7 gm 1 APPLIC MUCOUS MEM (14:46)
[2020-01-22 19:54] VITALS: BP 123/87; PULSE 96; RESP 16; TEMP 36.5; O2SAT 99
[2020-01-23 06:00] VITALS: BP 106/71; PULSE 77; RESP 17; TEMP 36.8; O2SAT 98
[2020-01-23] MEDS: ziprasidone hcl 20 mg Capsule PO ×2 (06:41→16:38)
[2020-01-23] MEDS: ziprasidone hcl 60 mg Capsule PO ×2 (06:41→16:38)
[2020-01-23] MEDS: CLONazepam 1 mg Tablet PO ×2 (07:54→16:37)
[2020-01-23] MEDS: buPROPion XL (24 HR) 150 mg Tablet PO (07:54)
[2020-01-23 13:46] VITALS: BP 110/73; PULSE 103; RESP 20; TEMP 36.6; O2SAT 96
[2020-01-23] MEDS: haloperidol 5 mg Tablet PO (15:04)
--- NOTE | 2020-01-23 15:04 | PC.NURSE ---
Addendum entered by Nasrin Leyva LPN 01/23/20 16:18: prn med not yet effective pt cont to pace in day room, yelling to himself at random. staff offered snack, pt took snack Original Note: PRN HALDOL 5 MG GIVEN PO PER PT REQUEST OF MEDICATIONS PT PACING UNIT, LAUGHING TO HIMSELF. TOOK MED WILLINGLY. WILL CONT TO MONITOR
--- NOTE | 2020-01-23 15:16 | PM.NPN ---
Subjective NPU Subjective: Interval history: Patient states that he is bored and that being bored are starting to get his irritability to increase. When asked what he has done in the past to help him when he becomes irritable, he says I try to make myself laugh. To his credit, is bored and is probably justified as there basically is nothing to do on the unit right now. Mental Status Exam MSE Comments: Mental Status Exam: The patient is alert and interpersonally engaged male appearing approximately his stated age. He no longer has soft objects in his ears . Otherwise eye contact is good. Appearance: hygiene is fair; no gross neurological deficits., gait is unremarkable; AIMS=0 Speech: Speech is of normal rate and rhythm and easily understood. Thought processes: Thought processes are concrete. Judgment is not adequate for safety only in the sense that when he becomes angry, he has difficulty rationally making choices.. Associations: intact Psychotic processes: There is no indication of guarding or paranoia. There is no attention to the internal stimuli. Auditory and visual hallucinations are denied. Judgment: Insight is fair. Problem solving skills are adequate for safety. Orientation: The patient is oriented to person, place time and situation. Memory: no deficits noted in immediate, intermediate, or remote spheres. Attention: The patient is alert and interpersonally engaged. Language: Verbalizations are coherent. Fund of knowledge: Fund of knowledge is adequate. Affect/Mood: Affect is consistent with a mildly depressed mood. pt denies suicidal ideation Affective range is within normal limits Psychosis: perception unimpaired except through cognitive distortion; reality testing is intact. Cognition: Patient Appearance: Appropriate Ability to Follow Directions: Good Patient Orientation (long list): Person and Name Comprehension Ability: No Impairment Hallucination Type: None Delusion Description: Paranoid Ideation Thought Process: Appropriate Affect: Affect Description: Appropriate Behavior: Patient Behavior: Appropriate Speech Pattern: Appropriate and Clear Vitals/I&O/Wt Last Vital Signs Temp 97.9 F 01/23/20 13:46 Pulse 103 H 01/23/20 13:46 Resp 20 H 01/23/20 13:46 BP 110/73 01/23/20 13:46 Pulse Ox 96 01/23/20 13:46 A&P Assessment and plan (1) Psychosis: Status: Acute (2) Substance abuse: Status: Acute (3) Anxiety: Status: Acute Additional A&P Information (1) Psychosis: (2) Substance abuse: (3) Anxiety: This is a 25-year-old white male with reported active addiction who is healthy presents as a very poor historian with limited input to our understanding of his presentation who presents resistant to medication trial. Hospital day #14: Patient agrees to replacement of Ativan with clonazepam 1 mg twice daily to take advantage of its longer half-life and reduce likelihood of variation in medication blood levels as a potential risk factor for increased sensitivity to his irritability. We will provide a test dose of propranolol 20 mg daily which is a medication that may be helpful for reactive aggression. Patient has taken both of these medications in the past. We also discussed the possible utility of a more brain stabilizing agent such as Depakote or lithium. Records will be reviewed for further consideration. Hospital day #15: Patient has gone 24 hours without emotional outburst. He seems to be tolerating medication well at this time. His blood pressure continues to be low at 105/70 and so we will focus on the use of benzodiazepines to help with his explosive outbursts as opposed to beta-blockers or similar cardiovascular side effect medications. Hospital day #16: Patient has now gone 48 hours without an emotional outburst. He was given as needed Zyprexa and Vistaril this morning. It is unclear why that was provided as the patient claims that he was not emotionally distraught and was working hard to keep his behavior and emotions under control. Access to as needed medications will be reduced. Hospital day #17: Patient is now gone 72 hours without an emotional outburst. He is no longer needing as needed medication although for some reason they keep giving it to him. He is as stable as he is going to get. We are now awaiting placement. 1. Continue current medication. 2. Continue every 15 minute checks for safety. 3. Encourage individual, group and milieu therapy. 4. Recommend sober living treatment at the highest level care to which he is willing to commit upon discharge. Involuntary Hold Information 96 Hour Hold: 96 Hour Involuntary Admission: No Attestations NPU Medical Necessity Statement*: Patient will remain in the hospital another 1-2 nights until he can find placement. Coding Level of Care Code Acute Associate [employer] for Sanjana Saucedo Diagnoses Psychosis F29 Substance abuse F19.10 Anxiety F41.9
[2020-01-23 19:43] VITALS: BP 119/73; PULSE 83; RESP 15; TEMP 36.6; O2SAT 98
--- NOTE | 2020-01-23 20:26 | NUR.SHIFT ---
Pt denies AH/VH and Denies SI/HI at this time. Patient is smiling, cooperative, and states that he is feeling better. His affect is clear and seems organized in his thinking at this time. Denies any pain.
[2020-01-23] MEDS: trazodone 50 mg Tablet PO (20:51)
[2020-01-24 06:00] VITALS: BP 115/85; PULSE 88; RESP 16; TEMP 36.7; O2SAT 99
[2020-01-24] MEDS: ziprasidone hcl 20 mg Capsule PO ×2 (06:34→16:23)
[2020-01-24] MEDS: ziprasidone hcl 60 mg Capsule PO ×2 (06:34→16:23)
[2020-01-24] MEDS: CLONazepam 1 mg Tablet PO ×2 (07:41→17:47)
[2020-01-24] MEDS: buPROPion XL (24 HR) 150 mg Tablet PO (07:41)
--- NOTE | 2020-01-24 12:52 | PM.NPN ---
Subjective NPU Subjective: Interval history: I'm bored. I'm anxious. Mental Status Exam MSE Comments: Mental Status Exam: The patient is alert and interpersonally engaged male appearing approximately his stated age. He no longer has soft objects in his ears . Otherwise eye contact is good. Appearance: hygiene is fair; no gross neurological deficits., gait is unremarkable; AIMS=0 Speech: Speech is of normal rate and rhythm and easily understood. Thought processes: Thought processes are concrete. Judgment is not adequate for safety only in the sense that when he becomes angry, he has difficulty rationally making choices.. Associations: intact Psychotic processes: There is no indication of guarding or paranoia. There is no attention to the internal stimuli. Auditory and visual hallucinations are denied. Judgment: Insight is fair. Problem solving skills are adequate for safety. Orientation: The patient is oriented to person, place time and situation. Memory: no deficits noted in immediate, intermediate, or remote spheres. Attention: The patient is alert and interpersonally engaged. Language: Verbalizations are coherent. Fund of knowledge: Fund of knowledge is adequate. Affect/Mood: Affect is consistent with a mildly depressed mood. pt denies suicidal ideation Affective range is within normal limits Psychosis: perception unimpaired except through cognitive distortion; reality testing is intact. Cognition: Patient Appearance: Disheveled/Poor Hygiene Ability to Follow Directions: Good Patient Orientation (long list): Person, Place and Name Comprehension Ability: No Impairment Hallucination Type: None Delusion Description: Not Present Thought Process: Disorganized Affect: Affect Description: Calm Behavior: Patient Behavior: Cooperative Speech Pattern: Clear Vitals/I&O/Wt Last Vital Signs Temp 98.1 F 01/24/20 06:00 Pulse 88 01/24/20 06:00 Resp 16 01/24/20 06:00 BP 115/85 01/24/20 06:00 Pulse Ox 99 01/24/20 06:00 A&P Assessment and plan (1) Psychosis: Status: Acute (2) Substance abuse: Status: Acute (3) Anxiety: Status: Acute Additional A&P Information (1) Psychosis: (2) Substance abuse: (3) Anxiety: This is a 25-year-old white male with reported active addiction who is healthy presents as a very poor historian with limited input to our understanding of his presentation who presents resistant to medication trial. Hospital day #14: Patient agrees to replacement of Ativan with clonazepam 1 mg twice daily to take advantage of its longer half-life and reduce likelihood of variation in medication blood levels as a potential risk factor for increased sensitivity to his irritability. We will provide a test dose of propranolol 20 mg daily which is a medication that may be helpful for reactive aggression. Patient has taken both of these medications in the past. We also discussed the possible utility of a more brain stabilizing agent such as Depakote or lithium. Records will be reviewed for further consideration. Hospital day #15: Patient has gone 24 hours without emotional outburst. He seems to be tolerating medication well at this time. His blood pressure continues to be low at 105/70 and so we will focus on the use of benzodiazepines to help with his explosive outbursts as opposed to beta-blockers or similar cardiovascular side effect medications. Hospital day #16: Patient has now gone 48 hours without an emotional outburst. He was given as needed Zyprexa and Vistaril this morning. It is unclear why that was provided as the patient claims that he was not emotionally distraught and was working hard to keep his behavior and emotions under control. Access to as needed medications will be reduced. Hospital day #17: Patient is now gone 72 hours without an emotional outburst. He is no longer needing as needed medication although for some reason they keep giving it to him. He is as stable as he is going to get. We are now awaiting placement. HD#18: Pt is stable and ready for discharge. Awaiting placement. 1. Continue current medication. 2. Continue every 15 minute checks for safety. 3. Encourage individual, group and milieu therapy. 4. Recommend sober living treatment at the highest level care to which he is willing to commit upon discharge. Involuntary Hold Information 96 Hour Hold: 96 Hour Involuntary Admission: No Attestations NPU Medical Necessity Statement*: Patient will remain in the hospital another 2-3 nights until placement can be found. 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
[2020-01-24] MEDS: propranolol 20 mg Tablet PO (13:27)
[2020-01-24] MEDS: nicotine 21 mg Patch 1 PATCH TRANSDERMA (13:27)
[2020-01-24 13:32] VITALS: BP 115/66; PULSE 98; RESP 18; TEMP 36.9; O2SAT 97
[2020-01-24] MEDS: benzocaine 20% 7 gm 1 APPLIC MUCOUS MEM (15:12)
--- NOTE | 2020-01-24 17:34 | PC.NURSE ---
Notified Dr Manriquez that patient was on phone and grabbed his chest and stated the pain was stabbing. His eyes were looking to the left. Vitals stable 118/86, 96 O2, 94 HR, 98.6. Due to bad cell service, awaiting orders.
[2020-01-24 19:40] VITALS: BP 136/72; PULSE 82; RESP 17; TEMP 36.3; O2SAT 94
[2020-01-24] MEDS: trazodone 50 mg Tablet PO (20:32)
--- NOTE | 2020-01-24 20:37 | PC.NURSE ---
PT denies AH/VH. Pt Denies SI/HI. Pt is sleeping, physical assessment reveals normal Heart sounds, no remarkable lung sounds throughout. Affect is sleepy and Mood is cooperative.
--- NOTE | 2020-01-24 20:44 | PC.NURSE ---
luis patch removed
[2020-01-25 06:00] VITALS: BP 121/83; PULSE 104; RESP 16; TEMP 36.7; O2SAT 98
[2020-01-25] MEDS: ziprasidone hcl 60 mg Capsule PO ×2 (06:19→16:29)
[2020-01-25] MEDS: ziprasidone hcl 20 mg Capsule PO ×2 (06:19→16:29)
[2020-01-25] MEDS: CLONazepam 1 mg Tablet PO ×2 (09:55→17:00)
[2020-01-25] MEDS: buPROPion XL (24 HR) 150 mg Tablet PO (09:55)
--- NOTE | 2020-01-25 10:18 | PM.NPN ---
Subjective NPU Subjective: Interval history: I'm bored. There is nothing to do here. Mental Status Exam MSE Comments: Mental Status Exam: The patient is alert and interpersonally engaged male appearing approximately his stated age. He no longer has soft objects in his ears . Otherwise eye contact is good. Appearance: hygiene is fair; no gross neurological deficits., gait is unremarkable; AIMS=0 Speech: Speech is of normal rate and rhythm and easily understood. Thought processes: Thought processes are concrete. Judgment is not adequate for safety only in the sense that when he becomes angry, he has difficulty rationally making choices.. Associations: intact Psychotic processes: There is no indication of guarding or paranoia. There is no attention to the internal stimuli. Auditory and visual hallucinations are denied. Judgment: Insight is fair. Problem solving skills are adequate for safety. Orientation: The patient is oriented to person, place time and situation. Memory: no deficits noted in immediate, intermediate, or remote spheres. Attention: The patient is alert and interpersonally engaged. Language: Verbalizations are coherent. Fund of knowledge: Fund of knowledge is adequate. Affect/Mood: Affect is consistent with a mildly depressed mood. pt denies suicidal ideation Affective range is within normal limits Psychosis: perception unimpaired except through cognitive distortion; reality testing is intact. Cognition: Patient Appearance: Disheveled/Poor Hygiene Ability to Follow Directions: Good Patient Orientation (long list): Person, Place and Name Comprehension Ability: No Impairment Hallucination Type: None Delusion Description: Not Present Thought Process: Appropriate Affect: Affect Description: Appropriate Behavior: Patient Behavior: Appropriate Speech Pattern: Appropriate Vitals/I&O/Wt Last Vital Signs Temp 98.1 F 01/25/20 06:00 Pulse 104 H 01/25/20 06:00 Resp 16 01/25/20 06:00 BP 121/83 01/25/20 06:00 Pulse Ox 98 01/25/20 06:00 A&P Assessment and plan (1) Psychosis: Status: Acute (2) Substance abuse: Status: Acute (3) Anxiety: Status: Acute Additional A&P Information (1) Psychosis: (2) Substance abuse: (3) Anxiety: This is a 25-year-old white male with reported active addiction who is healthy presents as a very poor historian with limited input to our understanding of his presentation who presents resistant to medication trial. Hospital day #14: Patient agrees to replacement of Ativan with clonazepam 1 mg twice daily to take advantage of its longer half-life and reduce likelihood of variation in medication blood levels as a potential risk factor for increased sensitivity to his irritability. We will provide a test dose of propranolol 20 mg daily which is a medication that may be helpful for reactive aggression. Patient has taken both of these medications in the past. We also discussed the possible utility of a more brain stabilizing agent such as Depakote or lithium. Records will be reviewed for further consideration. Hospital day #15: Patient has gone 24 hours without emotional outburst. He seems to be tolerating medication well at this time. His blood pressure continues to be low at 105/70 and so we will focus on the use of benzodiazepines to help with his explosive outbursts as opposed to beta-blockers or similar cardiovascular side effect medications. Hospital day #16: Patient has now gone 48 hours without an emotional outburst. He was given as needed Zyprexa and Vistaril this morning. It is unclear why that was provided as the patient claims that he was not emotionally distraught and was working hard to keep his behavior and emotions under control. Access to as needed medications will be reduced. Hospital day #17: Patient is now gone 72 hours without an emotional outburst. He is no longer needing as needed medication although for some reason they keep giving it to him. He is as stable as he is going to get. We are now awaiting placement. HD#18: Pt is stable and ready for discharge. Awaiting placement. HD#19: Pt is stable and ready for discharge. Awaiting transfer to placement on 01/27/2020. HE uses jokes to help pass the time. HE is provided a list of jokes daily and it seems to really assist his coping skills. 1. Continue current medication. 2. Continue every 15 minute checks for safety. 3. Encourage individual, group and milieu therapy. 4. Recommend sober living treatment at the highest level care to which he is willing to commit upon discharge. Involuntary Hold Information 96 Hour Hold: 96 Hour Involuntary Admission: No Attestations NPU Medical Necessity Statement*: Patient will remain in the hospital 2 more days until scheduled placement on the 01/26/2020 Coding Level of Care Code Acute Line Maintenance Technician for [facility] Diagnoses Psychosis F29 Substance abuse F19.10 Anxiety F41.9
[2020-01-25] MEDS: propranolol 20 mg Tablet PO (12:09)
[2020-01-25] MEDS: nicotine 2 mg Gum BUCCAL (13:34)
[2020-01-25 14:00] VITALS: BP 110/76; PULSE 96; RESP 18; TEMP 36.4; O2SAT 98
[2020-01-25 19:23] VITALS: BP 127/81; PULSE 98; RESP 16; TEMP 36.2; O2SAT 96
[2020-01-25] MEDS: acetaminophen 325 mg Tablet 650 MG PO (19:29)
[2020-01-25] MEDS: trazodone 50 mg Tablet PO (20:24)
[2020-01-26 06:00] VITALS: BP 118/75; PULSE 97; RESP 16; TEMP 36.3; O2SAT 97
[2020-01-26] MEDS: ziprasidone hcl 20 mg Capsule PO ×2 (06:01→16:17)
[2020-01-26] MEDS: ziprasidone hcl 60 mg Capsule PO ×2 (06:01→16:17)
[2020-01-26] MEDS: CLONazepam 1 mg Tablet PO ×2 (07:54→17:44)
[2020-01-26] MEDS: buPROPion XL (24 HR) 150 mg Tablet PO (07:54)
--- NOTE | 2020-01-26 09:38 | PM.NPN ---
Subjective NPU Subjective: Interval history: The patient has remained stable and we are endeavoring to continue that pending transfer to a residential care facility. He has slowly responded to antipsychotic pharmacotherapy and we await placement. Medications: Reviewed: Yes Medication Review Details: Current Medications Acetaminophen (Tylenol) 650 mg PO Q4H PRN PRN Reason: MILD PAIN Last Admin: 01/25/20 19:29 Dose: 650 mg Documented by: Benzocaine (Orajel) 1 applic MUCOUS MEM PRN PRN PRN Reason: PAIN Last Admin: 01/24/20 15:12 Dose: 1 applic Documented by: Benztropine Mesylate (Cogentin) 1 mg PO BID PRN PRN Reason: Mild Extrapyramidal symptoms Bupropion HCl (Wellbutrin Xl (24 Hr)) 150 mg PO DAILY [facility] Last Admin: 01/26/20 07:54 Dose: 150 mg Documented by: Camphor/Menthol/Phenol (Blistex) 1 applic TOPICAL Q1H PRN PRN Reason: DRYNESS Clonazepam (Klonopin) 1 mg PO BID [facility] Last Admin: 01/26/20 07:54 Dose: 1 mg Documented by: Haloperidol (Haldol) 5 mg PO Q4H PRN PRN Reason: AGITATION Last Admin: 01/23/20 15:04 Dose: 5 mg Documented by: Haloperidol Lactate (Haldol Inj) 5 mg IM Q4H PRN PRN Reason: Severe Aggression Last Admin: 01/19/20 15:51 Dose: 5 mg Documented by: Loperamide HCl (Imodium Capsule) 2 mg PO Q6H PRN PRN Reason: DIARRHEA Nicotine (Nicoderm 21 Mg Patch) 1 patch TRANSDERMA DAILY PRN PRN Reason: NICOTINE WITHDRAWAL Last Admin: 01/24/20 13:27 Dose: 1 patch Documented by: Nicotine Polacrilex (Nicorette) 2 mg BUCCAL Q2H PRN PRN Reason: NICOTINE WITHDRAWAL Last Admin: 01/25/20 13:34 Dose: 2 mg Documented by: Ondansetron HCl (Zofran) 4 mg PO Q6H PRN PRN Reason: NAUSEA AND VOMITING Last Admin: 01/20/20 17:58 Dose: 4 mg Documented by: Propranolol HCl (Inderal) 20 mg PO 1300 [facility] Last Admin: 01/25/20 12:09 Dose: 20 mg Documented by: Trazodone HCl (Desyrel) 50 mg PO BEDTIME [facility] Last Admin: 01/25/20 20:24 Dose: 50 mg Documented by: Ziprasidone (Geodon) 60 mg PO 0700,1700 [facility] Last Admin: 01/26/20 06:01 Dose: 60 mg Documented by: Ziprasidone (Geodon) 20 mg PO 0700,1700 [facility] Last Admin: 01/26/20 06:01 Dose: 20 mg Documented by: Mental Status Exam MSE Comments: The patient is alert and interpersonally engaged male appearing approximately his stated age. He no longer has soft objects in his ears . Otherwise eye contact is good. Hygiene is fair; no gross neurological deficits., gait is unremarkable; AIMS=0 Speech is of normal rate and rhythm and easily understood. Thought processes are concrete. Judgment is not adequate for safety only in the sense that when he becomes angry, he has difficulty rationally making choices. Associations: intact Psychotic processes: There is no indication of guarding or paranoia. There is no attention to internal stimuli. Auditory and visual hallucinations are denied. Judgment and insight are fair. Problem solving skills are adequate for safety. Orientation: The patient is oriented to person, place time and situation. Memory: no deficits noted in immediate, intermediate, or remote spheres. The patient is alert and interpersonally engaged. Fund of knowledge is adequate. Affect/Mood: Affect is consistent with a mildly depressed mood. pt denies suicidal ideation Affective range is within normal limits. Psychosis: perception unimpaired except through cognitive distortion; reality testing is intact. he patient is alert and interpersonally engaged male appearing approximately his stated age. He no longer has soft objects in his ears . Otherwise eye contact is good. Appearance: hygiene is fair; no gross neurological deficits., gait is unremarkable; AIMS=0 Speech: Speech is of normal rate and rhythm and easily understood. Thought processes: Thought processes are concrete. Judgment is not adequate for safety only in the sense that when he becomes angry, he has difficulty rationally making choices.. Associations: intact Psychotic processes: There is no indication of guarding or paranoia. There is no attention to the internal stimuli. Auditory and visual hallucinations are denied. Orientation: The patient is oriented to person, place time and situation. Memory: no deficits noted in immediate, intermediate, or remote spheres. Attention: The patient is alert and interpersonally engaged. Language: Verbalizations are coherent. Fund of knowledge: Fund of knowledge is adequate. Affect/Mood: Affect is consistent with a mildly depressed mood. pt denies suicidal ideation. Affective range is within normal limits Psychosis: perception unimpaired except through cognitive distortion; reality testing is intact. Vitals/I&O/Wt Last Vital Signs Temp 97.3 F L 01/26/20 06:00 Pulse 97 01/26/20 06:00 Resp 16 01/26/20 06:00 BP 118/75 01/26/20 06:00 Pulse Ox 97 01/26/20 06:00 Weight last 48 hrs Weight 204 lb 12.8 oz Weight 204 lb 12.8 oz A&P Assessment and plan (1) Substance abuse: Status: Acute (2) Psychosis: Status: Acute Involuntary Hold Information 96 Hour Hold: 96 Hour Involuntary Admission: No Attestations NPU Medical Necessity Statement*: Anticipate 2-3 additional midnights. We may be able to place him tomorrow. Time Spent in Patient Care: 16 - 35 minutes 30 minutes Coding Level of Care Code Acute Heavy Equipment Rental Associate for Sanjana Saucedo Diagnoses Substance abuse F19.10 Psychosis F29
[2020-01-26] MEDS: propranolol 20 mg Tablet PO (12:13)
[2020-01-26 13:02] VITALS: BP 133/88; PULSE 104; RESP 17; TEMP 36.2; O2SAT 96
[2020-01-26] MEDS: acetaminophen 325 mg Tablet 650 MG PO (16:17)
[2020-01-26] MEDS: nicotine 2 mg Gum BUCCAL (16:53)
[2020-01-26] MEDS: trazodone 50 mg Tablet PO (19:39)
[2020-01-26 22:00] VITALS: BP 106/71; PULSE 80; RESP 16; TEMP 36.7; O2SAT 96
[2020-01-27] MEDS: ziprasidone hcl 20 mg Capsule PO (04:52)
[2020-01-27] MEDS: ziprasidone hcl 60 mg Capsule PO (04:52)
[2020-01-27 06:00] VITALS: BP 103/64; PULSE 70; RESP 18; TEMP 36.4; O2SAT 97
[2020-01-27] MEDS: buPROPion XL (24 HR) 150 mg Tablet PO (08:34)
[2020-01-27] MEDS: CLONazepam 1 mg Tablet PO (08:34)
[2020-01-27 11:14] VITALS: BP 103/64; PULSE 70; RESP 18; TEMP 36.4; O2SAT 97
[2020-01-27] MEDS: propranolol 20 mg Tablet PO (12:06)
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
== END 2020-01-27 13:40 | disposition home or self-care (01) | DRG 885 ==
PROVIDERS: Admitting Provider Psychiatry & Neurology Psychiatry; Visit Provider Psychiatry & Neurology Psychiatry
DX: F23 Brief psychotic disorder (principal); R45.851 Suicidal ideations; E66.3 Overweight; Z68.29 Body mass index [BMI] 29.0-29.9, adult; F19.10 Other psychoactive substance abuse, uncomplicated; F41.9 Anxiety disorder, unspecified
CPT/HCPCS: 12345; 96372; J1200; J1630; J2060; J3486; Q0162